=== PATIENT | female | born 1965 | race Hispanic/Latino ===

== ENCOUNTER 2018-10-10 20:05 | Emergency (ER) | payer SELFPAY ==
--- NOTE | 2018-10-10 20:58 | RAD ---
PORTABLE CHEST: 10/10/18 HISTORY: Cough. Evidence of focal infiltrate in the medial right lung base obscuring right heart border. Lungs other umana clear. Heart and mediastinum unremarkable. IMPRESSION: Evidence of infiltrate in the medial right lower lung and possibly right middle lobe. POS: [facility]
[2018-10-10] MEDS ORDERED: Lidocaine 1% (PF) 30 ML VIAL ONE (21:24)
[2018-10-10] MEDS ORDERED: cefTRIAXone\\ROCEPHIN 1 GM VIAL ONE (21:24)
== END 2018-10-10 22:04 | disposition home or self-care (01) ==
LOC: ERS 20:05
DX: J18.1 Lobar pneumonia, unspecified organism (principal); E11.9 Type 2 diabetes mellitus without complications; Z79.84 Long term (current) use of oral hypoglycemic drugs
CPT/HCPCS: 71045; 87804; 96372; J0696; J2001

== ENCOUNTER 2020-05-20 12:53 | Emergency (ER) | payer SELFPAY ==
--- NOTE | 2020-05-20 13:30 | ULT ---
EXAM: Left lower extremity venous Doppler US HISTORY: left lower extremity edema and pain. Elevated d-dimer FINDINGS: Grayscale, color-flow, Doppler evaluation, spectral analysis of the left lower extremity venous struc tures is performed with 2-D imaging. The left common femoral, superficial femoral, popliteal, posterior tibial, proximal greater saphenous and profunda femoral veins are imaged. There is normal luminal compressibility, flow, and augmentation the visualized deep venous structures of the left lower extremity. IMPRESSION: No evidence of a deep vein thrombosis in the left lower extremity.
== END 2020-05-20 14:01 | disposition home or self-care (01) ==
LOC: ERS 12:53
DX: M54.42 Lumbago with sciatica, left side (principal); M79.605 Pain in left leg; E11.9 Type 2 diabetes mellitus without complications; Z79.82 Long term (current) use of aspirin; Z79.899 Other long term (current) drug therapy; Z79.84 Long term (current) use of oral hypoglycemic drugs

== ENCOUNTER 2020-12-23 17:40 | Inpatient (IN) | payer BC, SELFPAY ==
[~2020-12-23 17:40] MED LIST: Heparin 1,000 UNITS/ML VIAL ONE; Iopamidol-370 76% 500 ML 1 ML ONE
[2020-12-23 18:18] LABS: #Basophils 0.1 thou/uL (0.0-0.2); #Eosinphils 0.4 thou/uL (0.0-0.7); #Lymphocytes 1.3 thou/uL (1.20-3.40); #Monocytes 0.4 thou/uL (0.11-0.59); #Neutrophils 5.5 thou/uL (1.40-6.50); %Eosinophils 4.6 % (0.0-10.0); %Lymphocytes 17.3 % (21.0-51.0); %Monocytes 5.2 % (0.0-10.0); Hemoglobin 10.3 g/dL (12.0-16.0); Mean Corpuscular HGB CONC 32.4 g/dL (32.0-36.0); Mean Corpuscular Hemoglobin 28.7 pg (27.0-31.0); Mean Corpuscular Volume 88.6 fL (78.0-98.0); Mean Platelet Volume 7.7 fL (7.4-10.4); Platelet Count 261 thou/uL (130-400); RBC Distribution Width 12.7 % (11.5-14.5); Red Blood Cell (RBC) Count 3.59 mill/uL (4.20-5.40); White Blood Cell (WBC) Count 7.7 thou/uL (4.8-10.8)
[2020-12-23 18:40] LABS: ALT (SGPT) 130 U/L (8-55); AST (SGOT) 76 U/L (5-34); Albumin 3.1 g/dL (3.5-5.0); Alkaline Phosphatase 166 U/L (40-110); Anion Gap 13 mmol/L (10-20); BUN (Urea Nitrogen) 28 mg/dL (9.8-20.1); Bilirubin, Total 0.2 mg/dL (0.2-1.2); Calc. Creatinine Clearance 0 mL/min (70-130); Calcium 8.2 mg/dL (7.8-10.44); Carbon Dioxide 19 mmol/L (22-29); Chloride 113 mmol/L (98-107); Globulin 3.4 g/dL (2.4-3.5); Glucose 173 mg/dL (70-105); Potassium 3.7 mmol/L (3.5-5.1); Protein, Total 6.5 g/dL (6.0-8.3); Sodium 141 mmol/L (136-145)
[2020-12-23 19:02] LABS: CKMB 3.4 ng/mL (0-6.6)
[2020-12-23] MEDS ORDERED: Aspirin Chewable 81 MG TAB ONE (19:12)
[2020-12-23] MEDS ORDERED: Furosemide 40 MG/4 ML VIAL ONE (19:12)
[2020-12-23 21:41] LABS: SARS-CoV-2 NAA Rapid Test Not Detected (NotDetected)
[2020-12-23 22:22] LABS: Troponin I 0.052 ng/mL (< 0.028)
[2020-12-24] MEDS ORDERED: Ondansetron ODT 4 MG TAB SL PRN (00:45)
[2020-12-24] MEDS ORDERED: Acetaminophen 325 MG TAB PO PRN (00:45)
[2020-12-24] MEDS ORDERED: Ondansetron PF 4 MG/2 ML Vial IVP PRN (00:45)
[2020-12-24 01:15] LABS: Troponin I 0.063 ng/mL (< 0.028)
[2020-12-24 04:50] LABS: #Eosinphils 0.3 thou/uL (0.0-0.7); #Lymphocytes 1.6 thou/uL (1.20-3.40); #Monocytes 0.4 thou/uL (0.11-0.59); #Neutrophils 3.9 thou/uL (1.40-6.50); %Basophils 0.6 % (0.0-1.0); %Eosinophils 4.5 % (0.0-10.0); %Lymphocytes 25.1 % (21.0-51.0); %Monocytes 6.9 % (0.0-10.0); %Neutrophils 62.9 % (42.0-75.0); Hemoglobin 8.8 g/dL (12.0-16.0); Mean Corpuscular HGB CONC 32.5 g/dL (32.0-36.0); Mean Corpuscular Hemoglobin 28.7 pg (27.0-31.0); Mean Corpuscular Volume 88.1 fL (78.0-98.0); Mean Platelet Volume 7.7 fL (7.4-10.4); Platelet Count 211 thou/uL (130-400); RBC Distribution Width 12.5 % (11.5-14.5); Red Blood Cell (RBC) Count 3.07 mill/uL (4.20-5.40); White Blood Cell (WBC) Count 6.2 thou/uL (4.8-10.8)
[2020-12-24 05:25] LABS: Anion Gap 13 mmol/L (10-20); BUN (Urea Nitrogen) 28 mg/dL (9.8-20.1); Calc. Creatinine Clearance 42 mL/min (70-130); Calcium 7.9 mg/dL (7.8-10.44); Carbon Dioxide 21 mmol/L (22-29); Chloride 111 mmol/L (98-107); Glucose 128 mg/dL (70-105); Potassium 3.8 mmol/L (3.5-5.1); Sodium 141 mmol/L (136-145)
[2020-12-24 06:29] LABS: Bilirubin Negative (Negative); Blood, Urine 1+ (Negative); Clarity Clear (Clear); Glucose, Urine (Dipstick) Normal (Negative); Ketone, Urine Negative (Negative); Leukocyte Negative Leu/uL (Negative); Nitrite Negative (Negative); Protein, Urine (Dipstick) 300 mg/dL (Neg-Trace); Specific Gravity, Urine 1.019 (1.002-1.036); Urobilinogen Normal mg/dL (Less than 2); pH, Urine 5.5 (5.0-9.0)
[2020-12-24] MEDS ORDERED: Furosemide 40 MG/4 ML VIAL SLOW IVP SCH ×2 (09:00→18:00)
[2020-12-24] MEDS ORDERED: Enoxaparin Sodium 40 MG/0.4 ML SYRINGE SC SCH (09:00)
[2020-12-24] MEDS ORDERED: Insulin Regular 300 UNITS/3 ML VIAL SC PRN (16:04)
[2020-12-24] MEDS ORDERED: Dextrose 50% Abboject 50 ML SYRINGE SLOW IVP PRN (16:04)
[2020-12-24] MEDS ORDERED: Dextrose 5% in Water 1,000 ML IV PRN (16:04)
[2020-12-24 17:34] LABS: Glucose 170 mg/dL (70-105)
[2020-12-24] MEDS: Carvedilol 3.125 MG TAB PO SCH (18:01)
[2020-12-24] MEDS: Enoxaparin Sodium 80 MG/0.8 ML SYRINGE SC SCH (20:12)
[2020-12-24 21:35] LABS: Glucose 168 mg/dL (70-105)
[2020-12-25 04:33] LABS: #Basophils 0.1 thou/uL (0.0-0.2); #Eosinphils 0.4 thou/uL (0.0-0.7); #Lymphocytes 1.7 thou/uL (1.20-3.40); #Monocytes 0.4 thou/uL (0.11-0.59); #Neutrophils 3.6 thou/uL (1.40-6.50); %Eosinophils 7.1 % (0.0-10.0); %Lymphocytes 27.6 % (21.0-51.0); %Monocytes 7.1 % (0.0-10.0); %Neutrophils 57.2 % (42.0-75.0); Hemoglobin 9.5 g/dL (12.0-16.0); Mean Corpuscular Hemoglobin 28.4 pg (27.0-31.0); Mean Corpuscular Volume 88.9 fL (78.0-98.0); Mean Platelet Volume 7.9 fL (7.4-10.4); Platelet Count 215 thou/uL (130-400); RBC Distribution Width 12.8 % (11.5-14.5); Red Blood Cell (RBC) Count 3.34 mill/uL (4.20-5.40); White Blood Cell (WBC) Count 6.2 thou/uL (4.8-10.8)
[2020-12-25 04:40] LABS: Hemoglobin A1c 6.6 % (4.0-6.0)
[2020-12-25 05:01] LABS: ALT (SGPT) 76 U/L (8-55); AST (SGOT) 32 U/L (5-34); Albumin 2.8 g/dL (3.5-5.0); Alkaline Phosphatase 124 U/L (40-110); Anion Gap 12 mmol/L (10-20); BUN (Urea Nitrogen) 29 mg/dL (9.8-20.1); Bilirubin, Total 0.2 mg/dL (0.2-1.2); Calc. Creatinine Clearance 33 mL/min (70-130); Calcium 8.1 mg/dL (7.8-10.44); Carbon Dioxide 25 mmol/L (22-29); Cardiac Risk 6.6 (Less than 4.5); Chloride 108 mmol/L (98-107); Cholesterol 205 mg/dl (< 200 Desired); Globulin 3.1 g/dL (2.4-3.5); Glucose 149 mg/dL (70-105); HDL Cholesterol 31 mg/dL (>60 Neg Risk); LDL Cholesterol, Calculated 141 mg/dL; Magnesium 1.8 mg/dL (1.6-2.6); Protein, Total 5.9 g/dL (6.0-8.3); Sodium 141 mmol/L (136-145); Triglycerides 164 mg/dL (Less than 150)
[2020-12-25 05:16] LABS: HBCM Index 0.06 S/CO (0-0.79); HBSAg Index 0.16 S/CO (0-0.99); Hep A IgM AB Non-Reactive (NonReactive); Hep A IgM S/CO 0.16 S/CO (0-0.79); Hep B Surf Ag Non-Reactive S/CO (NonReactive); Hep C IgG Ab Non-Reactive (NonReactive); Hep C Index 0.08 S/CO (0-0.79); Hepatitis B Core IgM Abs Non-Reactive (NonReactive); Thyroid Stimulating Hormone 3.1832 uIU/mL (0.35-4.94)
[2020-12-25] MEDS: Aspirin 81 mg Enteric Coated Tablet PO SCH (08:20)
[2020-12-25] MEDS: Enoxaparin Sodium 80 MG/0.8 ML SYRINGE SC SCH (08:20)
[2020-12-25] MEDS: Carvedilol 3.125 MG TAB PO SCH (08:20)
[2020-12-25] MEDS ORDERED: Furosemide 20 MG TAB PO SCH (17:00)
[2020-12-25 17:17] LABS: Glucose 181 mg/dL (70-105)
[2020-12-25] MEDS: Carvedilol 6.25 MG TAB PO SCH (18:14)
[2020-12-25 21:28] LABS: Glucose 188 mg/dL (70-105)
[2020-12-25] MEDS: Atorvastatin Calcium 40 MG TAB PO SCH ×2 (21:45→22:31)
[2020-12-25] MEDS: Rosuvastatin 20 MG TAB PO SCH (21:45)
[2020-12-25] MEDS: Enoxaparin Sodium 40 MG/0.4 ML SYRINGE SC SCH (21:45)
[2020-12-26 04:38] LABS: #Eosinphils 0.5 thou/uL (0.0-0.7); #Lymphocytes 1.4 thou/uL (1.20-3.40); #Monocytes 0.4 thou/uL (0.11-0.59); %Basophils 0.9 % (0.0-1.0); %Eosinophils 8.9 % (0.0-10.0); %Lymphocytes 26.3 % (21.0-51.0); %Monocytes 7.4 % (0.0-10.0); %Neutrophils 56.5 % (42.0-75.0); Hemoglobin 9.4 g/dL (12.0-16.0); Mean Corpuscular HGB CONC 32.4 g/dL (32.0-36.0); Mean Corpuscular Hemoglobin 28.8 pg (27.0-31.0); Mean Corpuscular Volume 89.1 fL (78.0-98.0); Mean Platelet Volume 8.1 fL (7.4-10.4); Platelet Count 196 thou/uL (130-400); RBC Distribution Width 12.6 % (11.5-14.5); Red Blood Cell (RBC) Count 3.25 mill/uL (4.20-5.40); White Blood Cell (WBC) Count 5.4 thou/uL (4.8-10.8)
[2020-12-26 04:39] LABS: Reticulocyte Count 1.4 % (0.5-1.5)
[2020-12-26 04:57] LABS: ALT (SGPT) 75 U/L (8-55); AST (SGOT) 40 U/L (5-34); Albumin 2.9 g/dL (3.5-5.0); Alkaline Phosphatase 122 U/L (40-110); Anion Gap 10 mmol/L (10-20); BUN (Urea Nitrogen) 34 mg/dL (9.8-20.1); Bilirubin, Total 0.2 mg/dL (0.2-1.2); Calc. Creatinine Clearance 35 mL/min (70-130); Calcium 7.8 mg/dL (7.8-10.44); Carbon Dioxide 28 mmol/L (22-29); Chloride 107 mmol/L (98-107); Globulin 2.9 g/dL (2.4-3.5); Glucose 164 mg/dL (70-105); Iron Binding Capacity, Total 204 mcg/dL (265-497); Potassium 4.2 mmol/L (3.5-5.1); Protein, Total 5.8 g/dL (6.0-8.3); Sodium 141 mmol/L (136-145)
[2020-12-26 08:05] LABS: Glucose 153 mg/dL (70-105)
[2020-12-26] MEDS: Enoxaparin Sodium 40 MG/0.4 ML SYRINGE SC SCH ×2 (08:47→21:42)
[2020-12-26] MEDS: Aspirin 81 mg Enteric Coated Tablet PO SCH (08:48)
[2020-12-26] MEDS: Carvedilol 6.25 MG TAB PO SCH ×2 (08:48→17:38)
[2020-12-26] MEDS ORDERED: Furosemide 20 MG TAB PO SCH (09:00)
[2020-12-26 12:09] LABS: Glucose 192 mg/dL (70-105)
[2020-12-26 18:04] LABS: Glucose 137 mg/dL (70-105)
[2020-12-26 21:30] LABS: Glucose 158 mg/dL (70-105)
[2020-12-26] MEDS: Rosuvastatin 20 MG TAB PO SCH (21:42)
[2020-12-27 05:46] LABS: Anion Gap 9 mmol/L (10-20); BUN (Urea Nitrogen) 45 mg/dL (9.8-20.1); Calc. Creatinine Clearance 35 mL/min (70-130); Calcium 8.1 mg/dL (7.8-10.44); Carbon Dioxide 29 mmol/L (22-29); Chloride 106 mmol/L (98-107); Glucose 142 mg/dL (70-105); Potassium 4.3 mmol/L (3.5-5.1); Sodium 140 mmol/L (136-145)
[2020-12-27] MEDS: Carvedilol 6.25 MG TAB PO SCH ×2 (08:24→16:35)
[2020-12-27] MEDS: Aspirin 81 mg Enteric Coated Tablet PO SCH (08:24)
[2020-12-27] MEDS: Furosemide 20 MG TAB PO SCH (08:24)
[2020-12-27] MEDS: Enoxaparin Sodium 40 MG/0.4 ML SYRINGE SC SCH ×2 (08:24→20:49)
[2020-12-27] MEDS: HumaLOG 300 UNITS/3 ML VIAL SC PRN (18:43)
[2020-12-27] MEDS: Rosuvastatin 20 MG TAB PO SCH (20:49)
[2020-12-28 01:05] LABS: ALT (SGPT) 96 U/L (8-55); AST (SGOT) 86 U/L (5-34); Albumin 2.9 g/dL (3.5-5.0); Alkaline Phosphatase 132 U/L (40-110); Anion Gap 13 mmol/L (10-20); BUN (Urea Nitrogen) 44 mg/dL (9.8-20.1); Bilirubin, Total Less than 0.2 mg/dL (0.2-1.2); Calc. Creatinine Clearance 32 mL/min (70-130); Calcium 7.7 mg/dL (7.8-10.44); Carbon Dioxide 23 mmol/L (22-29); Chloride 108 mmol/L (98-107); Glucose 189 mg/dL (70-105); Potassium 4.6 mmol/L (3.5-5.1); Protein, Total 5.9 g/dL (6.0-8.3); Sodium 139 mmol/L (136-145)
[2020-12-28] MEDS ORDERED: ALPRAZolam 0.25 MG TAB PO SCH (01:15)
[2020-12-28] MEDS ORDERED: PARoxetine 20 MG TAB PO SCH (01:15)
[2020-12-28 01:27] LABS: CKMB 2.2 ng/mL (0-6.6)
[2020-12-28 05:25] LABS: #Eosinphils 0.4 thou/uL (0.0-0.7); #Lymphocytes 1.3 thou/uL (1.20-3.40); #Monocytes 0.4 thou/uL (0.11-0.59); #Neutrophils 3.4 thou/uL (1.40-6.50); %Basophils 0.8 % (0.0-1.0); %Eosinophils 7.5 % (0.0-10.0); %Lymphocytes 22.6 % (21.0-51.0); %Monocytes 7.5 % (0.0-10.0); %Neutrophils 61.6 % (42.0-75.0); Hemoglobin 8.7 g/dL (12.0-16.0); Mean Corpuscular HGB CONC 32.2 g/dL (32.0-36.0); Mean Corpuscular Hemoglobin 28.5 pg (27.0-31.0); Mean Corpuscular Volume 88.5 fL (78.0-98.0); Mean Platelet Volume 8.4 fL (7.4-10.4); Platelet Count 184 thou/uL (130-400); RBC Distribution Width 12.6 % (11.5-14.5); Red Blood Cell (RBC) Count 3.04 mill/uL (4.20-5.40); White Blood Cell (WBC) Count 5.5 thou/uL (4.8-10.8)
[2020-12-28] MEDS: Furosemide 20 MG TAB PO SCH (08:42)
[2020-12-28] MEDS: Aspirin 81 mg Enteric Coated Tablet PO SCH (08:42)
[2020-12-28] MEDS: PARoxetine 20 MG TAB PO SCH (08:42)
[2020-12-28] MEDS: Carvedilol 6.25 MG TAB PO SCH ×2 (08:42→17:39)
[2020-12-28] MEDS: Enoxaparin Sodium 40 MG/0.4 ML SYRINGE SC SCH ×2 (08:42→20:33)
[2020-12-28 12:27] LABS: Glucose 146 mg/dL (70-105)
[2020-12-28 17:23] LABS: Glucose 161 mg/dL (70-105)
[2020-12-28] MEDS: ALPRAZolam 0.25 MG TAB PO PRN (20:34)
[2020-12-28] MEDS: Rosuvastatin 20 MG TAB PO SCH (20:34)
[2020-12-28] MEDS: Milrinone Lactate/D5W 20 MG in Premix Bag 1 BAG IV SCH (20:34)
[2020-12-29 05:09] LABS: #Eosinphils 0.4 thou/uL (0.0-0.7); #Lymphocytes 1.6 thou/uL (1.20-3.40); #Monocytes 0.5 thou/uL (0.11-0.59); #Neutrophils 3.2 thou/uL (1.40-6.50); %Basophils 0.8 % (0.0-1.0); %Eosinophils 7.4 % (0.0-10.0); %Lymphocytes 27.3 % (21.0-51.0); %Monocytes 9.2 % (0.0-10.0); %Neutrophils 55.3 % (42.0-75.0); Hemoglobin 8.7 g/dL (12.0-16.0); Mean Corpuscular HGB CONC 32.6 g/dL (32.0-36.0); Mean Corpuscular Hemoglobin 29.1 pg (27.0-31.0); Mean Corpuscular Volume 89.1 fL (78.0-98.0); Mean Platelet Volume 8.9 fL (7.4-10.4); Platelet Count 175 thou/uL (130-400); RBC Distribution Width 12.6 % (11.5-14.5); Red Blood Cell (RBC) Count 2.97 mill/uL (4.20-5.40); Reticulocyte Count 1.7 % (0.5-1.5); White Blood Cell (WBC) Count 5.8 thou/uL (4.8-10.8)
[2020-12-29 05:24] LABS: Anion Gap 11 mmol/L (10-20); BUN (Urea Nitrogen) 40 mg/dL (9.8-20.1); Calc. Creatinine Clearance 37 mL/min (70-130); Calcium 7.7 mg/dL (7.8-10.44); Carbon Dioxide 25 mmol/L (22-29); Chloride 107 mmol/L (98-107); Glucose 141 mg/dL (70-105); Iron 24 ug/dL (50-170); Iron Binding Capacity, Total 218 mcg/dL (265-497); Magnesium 2.3 mg/dL (1.6-2.6); Potassium 4.8 mmol/L (3.5-5.1); Sodium 138 mmol/L (136-145)
[2020-12-29] MEDS: Milrinone Lactate/D5W 20 MG in Premix Bag 1 BAG IV SCH ×2 (08:25→18:18)
[2020-12-29] MEDS: PARoxetine 20 MG TAB PO SCH (08:25)
[2020-12-29] MEDS: Carvedilol 6.25 MG TAB PO SCH ×2 (08:25→16:26)
[2020-12-29] MEDS: Enoxaparin Sodium 40 MG/0.4 ML SYRINGE SC SCH ×2 (08:25→21:24)
[2020-12-29] MEDS: Aspirin 81 mg Enteric Coated Tablet PO SCH (08:25)
[2020-12-29] MEDS ORDERED: Furosemide 100 MG/10 ML VIAL SLOW IVP SCH (08:30)
[2020-12-29] MEDS: Iron, Sodium Ferric Gluconate 250 MG in Sodium Chloride 0.9% 100 ML IVPB SCH ×2 (09:46→21:24)
[2020-12-29] MEDS ORDERED: Carvedilol 6.25 MG TAB PO SCH (17:00)
[2020-12-29] MEDS: Rosuvastatin 20 MG TAB PO SCH (21:24)
[2020-12-30] MEDS: HumaLOG 300 UNITS/3 ML VIAL SC PRN ×4 (06:11→20:47)
[2020-12-30] MEDS ORDERED: Furosemide 100 MG/10 ML VIAL SLOW IVP SCH (08:30)
[2020-12-30 08:35] LABS: ALT (SGPT) 66 U/L (8-55); AST (SGOT) 29 U/L (5-34); Albumin 2.9 g/dL (3.5-5.0); Alkaline Phosphatase 113 U/L (40-110); Anion Gap 11 mmol/L (10-20); BUN (Urea Nitrogen) 32 mg/dL (9.8-20.1); Bilirubin, Total 0.2 mg/dL (0.2-1.2); Calc. Creatinine Clearance 36 mL/min (70-130); Calcium 8.2 mg/dL (7.8-10.44); Carbon Dioxide 25 mmol/L (22-29); Chloride 109 mmol/L (98-107); Globulin 3.1 g/dL (2.4-3.5); Glucose 83 mg/dL (70-105); Magnesium 2.2 mg/dL (1.6-2.6); Potassium 4.5 mmol/L (3.5-5.1); Sodium 140 mmol/L (136-145)
[2020-12-30] MEDS: PARoxetine 20 MG TAB PO SCH (10:11)
[2020-12-30] MEDS: Aspirin 81 mg Enteric Coated Tablet PO SCH (10:11)
[2020-12-30] MEDS: Carvedilol 6.25 MG TAB PO SCH ×2 (10:11→18:06)
[2020-12-30] MEDS: Milrinone Lactate/D5W 20 MG in Premix Bag 1 BAG IV SCH ×2 (10:13→19:54)
[2020-12-30] MEDS: Enoxaparin Sodium 40 MG/0.4 ML SYRINGE SC SCH ×2 (10:22→20:46)
[2020-12-30] MEDS ORDERED: Albumin 25% 25 GM/100 ML BOT IVPB SCH (14:49)
[2020-12-30] MEDS: Furosemide 100 MG/10 ML VIAL SLOW IVP SCH (16:19)
[2020-12-30] MEDS: Rosuvastatin 20 MG TAB PO SCH (20:46)
[2020-12-31 04:38] LABS: #Eosinphils 0.4 thou/uL (0.0-0.7); #Lymphocytes 1.2 thou/uL (1.20-3.40); #Monocytes 0.6 thou/uL (0.11-0.59); #Neutrophils 3.3 thou/uL (1.40-6.50); %Basophils 0.7 % (0.0-1.0); %Eosinophils 7.8 % (0.0-10.0); %Lymphocytes 22.1 % (21.0-51.0); %Monocytes 10.5 % (0.0-10.0); %Neutrophils 58.9 % (42.0-75.0); Hemoglobin 8.5 g/dL (12.0-16.0); Mean Corpuscular HGB CONC 33.5 g/dL (32.0-36.0); Mean Corpuscular Hemoglobin 29.4 pg (27.0-31.0); Mean Corpuscular Volume 87.7 fL (78.0-98.0); Mean Platelet Volume 8.4 fL (7.4-10.4); Platelet Count 176 thou/uL (130-400); RBC Distribution Width 12.5 % (11.5-14.5); Red Blood Cell (RBC) Count 2.89 mill/uL (4.20-5.40); White Blood Cell (WBC) Count 5.6 thou/uL (4.8-10.8)
[2020-12-31 05:02] LABS: Anion Gap 13 mmol/L (10-20); BUN (Urea Nitrogen) 31 mg/dL (9.8-20.1); Calc. Creatinine Clearance 35 mL/min (70-130); Calcium 8.8 mg/dL (7.8-10.44); Carbon Dioxide 27 mmol/L (22-29); Chloride 104 mmol/L (98-107); Glucose 116 mg/dL (70-105); Magnesium 1.9 mg/dL (1.6-2.6); Potassium 4.3 mmol/L (3.5-5.1); Sodium 140 mmol/L (136-145)
[2020-12-31] MEDS: Milrinone Lactate/D5W 20 MG in Premix Bag 1 BAG IV SCH ×2 (07:12→20:21)
[2020-12-31] MEDS: Furosemide 100 MG/10 ML VIAL SLOW IVP SCH (08:28)
[2020-12-31] MEDS ORDERED: Enoxaparin Sodium 40 MG/0.4 ML SYRINGE SC SCH (09:00)
[2020-12-31] MEDS: Albumin 25% 25 GM/100 ML BOT IVPB SCH ×2 (10:00→20:23)
[2020-12-31] MEDS: PARoxetine 20 MG TAB PO SCH (10:01)
[2020-12-31] MEDS: Magnesium Oxide 400 MG TAB PO SCH ×2 (10:01→20:23)
[2020-12-31] MEDS: Carvedilol 6.25 MG TAB PO SCH ×2 (10:01→17:33)
[2020-12-31] MEDS: Enoxaparin Sodium 40 MG/0.4 ML SYRINGE SC SCH ×2 (10:03→20:23)
[2020-12-31] MEDS: Aspirin 81 mg Enteric Coated Tablet PO SCH (10:03)
[2020-12-31] MEDS ORDERED: Furosemide 100 MG/10 ML VIAL IVPB SCH (11:00)
[2020-12-31] MEDS: HumaLOG 300 UNITS/3 ML VIAL SC PRN ×2 (12:27→17:40)
[2020-12-31] MEDS: Rosuvastatin 20 MG TAB PO SCH (20:23)
[2020-12-31] MEDS: ALPRAZolam 0.25 MG TAB PO PRN (20:24)
[2021-01-01 04:33] LABS: #Eosinphils 0.6 thou/uL (0.0-0.7); #Lymphocytes 1.7 thou/uL (1.20-3.40); #Monocytes 0.6 thou/uL (0.11-0.59); #Neutrophils 3.1 thou/uL (1.40-6.50); %Basophils 0.6 % (0.0-1.0); %Eosinophils 9.5 % (0.0-10.0); %Lymphocytes 28.3 % (21.0-51.0); %Monocytes 9.6 % (0.0-10.0); Hemoglobin 8.1 g/dL (12.0-16.0); Mean Corpuscular HGB CONC 32.9 g/dL (32.0-36.0); Mean Corpuscular Hemoglobin 28.7 pg (27.0-31.0); Mean Corpuscular Volume 87.4 fL (78.0-98.0); Mean Platelet Volume 8.1 fL (7.4-10.4); Platelet Count 170 thou/uL (130-400); RBC Distribution Width 12.6 % (11.5-14.5); Red Blood Cell (RBC) Count 2.81 mill/uL (4.20-5.40)
[2021-01-01 04:56] LABS: Anion Gap 11 mmol/L (10-20); BUN (Urea Nitrogen) 31 mg/dL (9.8-20.1); Calc. Creatinine Clearance 31 mL/min (70-130); Calcium 8.7 mg/dL (7.8-10.44); Carbon Dioxide 30 mmol/L (22-29); Chloride 102 mmol/L (98-107); Glucose 228 mg/dL (70-105); Magnesium 1.9 mg/dL (1.6-2.6); Potassium 4.1 mmol/L (3.5-5.1); Sodium 139 mmol/L (136-145)
[2021-01-01] MEDS: HumaLOG 300 UNITS/3 ML VIAL SC PRN ×2 (05:37→17:24)
[2021-01-01] MEDS ORDERED: Potassium Chloride 20 MEQ TAB PO SCH (09:00)
[2021-01-01] MEDS ORDERED: Furosemide 100 MG/10 ML VIAL SLOW IVP SCH (09:30)
[2021-01-01] MEDS: Carvedilol 6.25 MG TAB PO SCH ×2 (09:55→16:27)
[2021-01-01] MEDS: Enoxaparin Sodium 40 MG/0.4 ML SYRINGE SC SCH ×2 (09:56→20:52)
[2021-01-01] MEDS: PARoxetine 20 MG TAB PO SCH (09:56)
[2021-01-01] MEDS: Magnesium Oxide 400 MG TAB PO SCH ×2 (09:56→20:53)
[2021-01-01] MEDS: Aspirin 81 mg Enteric Coated Tablet PO SCH (09:56)
[2021-01-01] MEDS: Milrinone Lactate/D5W 20 MG in Premix Bag 1 BAG IV SCH ×2 (09:59→19:38)
[2021-01-01] MEDS: Rosuvastatin 20 MG TAB PO SCH (20:52)
[2021-01-02 04:28] LABS: #Eosinphils 0.7 thou/uL (0.0-0.7); #Lymphocytes 1.8 thou/uL (1.20-3.40); #Monocytes 0.6 thou/uL (0.11-0.59); %Basophils 0.5 % (0.0-1.0); %Eosinophils 9.6 % (0.0-10.0); %Lymphocytes 25.3 % (21.0-51.0); %Monocytes 8.3 % (0.0-10.0); %Neutrophils 56.4 % (42.0-75.0); Hemoglobin 10.4 g/dL (12.0-16.0); Mean Corpuscular Hemoglobin 29.4 pg (27.0-31.0); Mean Corpuscular Volume 88.8 fL (78.0-98.0); Mean Platelet Volume 8.3 fL (7.4-10.4); Platelet Count 192 thou/uL (130-400); Red Blood Cell (RBC) Count 3.55 mill/uL (4.20-5.40)
[2021-01-02 04:38] LABS: Anion Gap 15 mmol/L (10-20); BUN (Urea Nitrogen) 30 mg/dL (9.8-20.1); Calc. Creatinine Clearance 29 mL/min (70-130); Calcium 9.1 mg/dL (7.8-10.44); Carbon Dioxide 25 mmol/L (22-29); Chloride 103 mmol/L (98-107); Glucose 206 mg/dL (70-105); Magnesium 1.9 mg/dL (1.6-2.6); Potassium 4.6 mmol/L (3.5-5.1); Sodium 138 mmol/L (136-145)
[2021-01-02] MEDS: HumaLOG 300 UNITS/3 ML VIAL SC PRN ×2 (07:23→16:41)
[2021-01-02] MEDS: Milrinone Lactate/D5W 20 MG in Premix Bag 1 BAG IV SCH ×2 (07:24→22:10)
[2021-01-02] MEDS: PARoxetine 20 MG TAB PO SCH (08:51)
[2021-01-02] MEDS: Aspirin 81 mg Enteric Coated Tablet PO SCH (08:51)
[2021-01-02] MEDS: Carvedilol 6.25 MG TAB PO SCH ×2 (08:51→16:33)
[2021-01-02] MEDS: Potassium Chloride 20 MEQ TAB PO SCH (08:51)
[2021-01-02] MEDS: Magnesium Oxide 400 MG TAB PO SCH ×2 (08:51→21:02)
[2021-01-02] MEDS: Enoxaparin Sodium 40 MG/0.4 ML SYRINGE SC SCH ×2 (08:51→21:01)
[2021-01-02] MEDS ORDERED: Isosorbide Dinitrate 5 MG TAB PO SCH (10:15)
[2021-01-02] MEDS ORDERED: hydrALAZINE 25 MG TAB PO SCH (10:30)
[2021-01-02] MEDS: hydrALAZINE 25 MG TAB PO SCH ×2 (13:42→21:02)
[2021-01-02 17:58] LABS: INR-International Normal Ratio 0.9; Prothrombin Time 12.8 sec (12.0-14.7)
[2021-01-02] MEDS ORDERED: Warfarin Sodium 5 MG TAB PO SCH (20:15)
[2021-01-02] MEDS: Isosorbide Dinitrate 5 MG TAB PO SCH (21:01)
[2021-01-02] MEDS: Rosuvastatin 20 MG TAB PO SCH (21:02)
[2021-01-02] MEDS ORDERED: HumaLOG 300 UNITS/3 ML VIAL SC PRN (22:10)
[2021-01-03 03:58] LABS: #Basophils 0.1 thou/uL (0.0-0.2); #Eosinphils 0.7 thou/uL (0.0-0.7); #Lymphocytes 1.8 thou/uL (1.20-3.40); #Monocytes 0.7 thou/uL (0.11-0.59); #Neutrophils 3.6 thou/uL (1.40-6.50); %Basophils 0.9 % (0.0-1.0); %Eosinophils 10.1 % (0.0-10.0); %Lymphocytes 25.8 % (21.0-51.0); %Monocytes 10.6 % (0.0-10.0); %Neutrophils 52.6 % (42.0-75.0); Hemoglobin 10.6 g/dL (12.0-16.0); Mean Corpuscular HGB CONC 33.4 g/dL (32.0-36.0); Mean Corpuscular Hemoglobin 30.2 pg (27.0-31.0); Mean Corpuscular Volume 90.5 fL (78.0-98.0); Mean Platelet Volume 8.1 fL (7.4-10.4); Platelet Count 186 thou/uL (130-400); RBC Distribution Width 13.3 % (11.5-14.5); Red Blood Cell (RBC) Count 3.51 mill/uL (4.20-5.40); White Blood Cell (WBC) Count 6.9 thou/uL (4.8-10.8)
[2021-01-03 04:03] LABS: INR-International Normal Ratio 0.9; Prothrombin Time 12.6 sec (12.0-14.7)
[2021-01-03 04:32] LABS: Anion Gap 13 mmol/L (10-20); BUN (Urea Nitrogen) 29 mg/dL (9.8-20.1); Calc. Creatinine Clearance 29 mL/min (70-130); Calcium 8.8 mg/dL (7.8-10.44); Carbon Dioxide 25 mmol/L (22-29); Chloride 104 mmol/L (98-107); Glucose 164 mg/dL (70-105); Sodium 137 mmol/L (136-145)
[2021-01-03] MEDS: hydrALAZINE 25 MG TAB PO SCH ×3 (07:52→20:27)
[2021-01-03] MEDS: Carvedilol 6.25 MG TAB PO SCH ×2 (09:41→16:33)
[2021-01-03] MEDS: Isosorbide Dinitrate 5 MG TAB PO SCH ×2 (09:42→20:28)
[2021-01-03] MEDS: Enoxaparin Sodium 40 MG/0.4 ML SYRINGE SC SCH ×2 (09:42→20:28)
[2021-01-03] MEDS: Magnesium Oxide 400 MG TAB PO SCH ×2 (09:42→20:28)
[2021-01-03] MEDS: Potassium Chloride 20 MEQ TAB PO SCH (09:42)
[2021-01-03] MEDS: PARoxetine 20 MG TAB PO SCH (09:42)
[2021-01-03] MEDS: Aspirin 81 mg Enteric Coated Tablet PO SCH (09:42)
[2021-01-03] MEDS: Milrinone Lactate/D5W 20 MG in Premix Bag 1 BAG IV SCH ×2 (09:46→18:09)
[2021-01-03] MEDS: HumaLOG 300 UNITS/3 ML VIAL SC PRN ×2 (11:54→18:09)
[2021-01-03] MEDS: Albumin 25% 25 GM/100 ML BOT IVPB SCH ×2 (11:54→20:27)
[2021-01-03] MEDS: Warfarin Sodium 5 MG TAB PO SCH (16:34)
[2021-01-03] MEDS: Rosuvastatin 20 MG TAB PO SCH (20:28)
[2021-01-04] MEDS ORDERED: hydrALAZINE 25 MG TAB ONE ×3 (05:51→14:24)
[2021-01-04] MEDS ORDERED: Aspirin 81 mg Enteric Coated Tablet ONE (09:11)
[2021-01-04] MEDS ORDERED: Enoxaparin Sodium 40 MG/0.4 ML SYRINGE ONE (09:11)
[2021-01-04] MEDS ORDERED: Magnesium Oxide 400 MG TAB PO ONE (09:11)
[2021-01-04] MEDS ORDERED: Carvedilol 6.25 MG TAB ONE (09:11)
[2021-01-04] MEDS ORDERED: PARoxetine 20 MG TAB ONE (09:11)
[2021-01-04] MEDS: Carvedilol 6.25 MG TAB PO SCH ×2 (09:51→16:44)
[2021-01-04] MEDS: PARoxetine 20 MG TAB PO SCH (09:51)
[2021-01-04] MEDS: Enoxaparin Sodium 40 MG/0.4 ML SYRINGE SC SCH ×2 (09:51→22:13)
[2021-01-04] MEDS: Magnesium Oxide 400 MG TAB PO SCH ×2 (09:51→22:09)
[2021-01-04] MEDS: Aspirin 81 mg Enteric Coated Tablet PO SCH (09:51)
[2021-01-04] MEDS: Isosorbide Dinitrate 5 MG TAB PO SCH ×2 (09:51→22:09)
[2021-01-04] MEDS: hydrALAZINE 25 MG TAB PO SCH ×3 (14:28→22:09)
[2021-01-04 14:42] LABS: #Eosinphils 0.6 thou/uL (0.0-0.7); #Lymphocytes 1.3 thou/uL (1.20-3.40); #Monocytes 0.5 thou/uL (0.11-0.59); %Basophils 0.5 % (0.0-1.0); %Eosinophils 11.8 % (0.0-10.0); %Lymphocytes 23.2 % (21.0-51.0); %Monocytes 8.9 % (0.0-10.0); %Neutrophils 55.5 % (42.0-75.0); Hemoglobin 10.1 g/dL (12.0-16.0); Mean Corpuscular HGB CONC 32.5 g/dL (32.0-36.0); Mean Corpuscular Hemoglobin 29.5 pg (27.0-31.0); Mean Corpuscular Volume 90.9 fL (78.0-98.0); Mean Platelet Volume 8.2 fL (7.4-10.4); Platelet Count 193 thou/uL (130-400); RBC Distribution Width 13.4 % (11.5-14.5); Red Blood Cell (RBC) Count 3.41 mill/uL (4.20-5.40); White Blood Cell (WBC) Count 5.4 thou/uL (4.8-10.8)
[2021-01-04 15:00] LABS: Anion Gap 13 mmol/L (10-20); BUN (Urea Nitrogen) 30 mg/dL (9.8-20.1); Calc. Creatinine Clearance 32 mL/min (70-130); Calcium 9.1 mg/dL (7.8-10.44); Carbon Dioxide 25 mmol/L (22-29); Chloride 105 mmol/L (98-107); Glucose 144 mg/dL (70-105); Magnesium 2.2 mg/dL (1.6-2.6); Potassium 5.1 mmol/L (3.5-5.1); Sodium 138 mmol/L (136-145)
[2021-01-04] MEDS: Warfarin Sodium 5 MG TAB PO SCH (16:45)
[2021-01-04] MEDS: HumaLOG 300 UNITS/3 ML VIAL SC PRN (17:34)
[2021-01-04] MEDS: Milrinone Lactate/D5W 20 MG in Premix Bag 1 BAG IV SCH (17:38)
[2021-01-04 20:54] LABS: INR-International Normal Ratio 1.1; Prothrombin Time 14.7 sec (12.0-14.7)
[2021-01-04] MEDS: Rosuvastatin 20 MG TAB PO SCH (22:09)
[2021-01-05 03:47] LABS: INR-International Normal Ratio 1.5; Prothrombin Time 18.2 sec (12.0-14.7)
[2021-01-05 04:04] LABS: Anion Gap 13 mmol/L (10-20); BUN (Urea Nitrogen) 35 mg/dL (9.8-20.1); Calc. Creatinine Clearance 32 mL/min (70-130); Calcium 8.7 mg/dL (7.8-10.44); Carbon Dioxide 22 mmol/L (22-29); Chloride 105 mmol/L (98-107); Glucose 148 mg/dL (70-105); Magnesium 2.2 mg/dL (1.6-2.6); Potassium 4.9 mmol/L (3.5-5.1); Sodium 135 mmol/L (136-145)
[2021-01-05 04:15] LABS: #Basophils 0.1 thou/uL (0.0-0.2); #Eosinphils 0.7 thou/uL (0.0-0.7); #Lymphocytes 1.8 thou/uL (1.20-3.40); #Monocytes 0.5 thou/uL (0.11-0.59); #Neutrophils 3.2 thou/uL (1.40-6.50); %Eosinophils 10.5 % (0.0-10.0); %Lymphocytes 28.6 % (21.0-51.0); %Monocytes 8.3 % (0.0-10.0); %Neutrophils 51.6 % (42.0-75.0); Mean Corpuscular HGB CONC 33.5 g/dL (32.0-36.0); Mean Corpuscular Hemoglobin 29.8 pg (27.0-31.0); Mean Corpuscular Volume 89.2 fL (78.0-98.0); Mean Platelet Volume 7.6 fL (7.4-10.4); Platelet Count 195 thou/uL (130-400); RBC Distribution Width 13.2 % (11.5-14.5); RBC Morphology Normal; Red Blood Cell (RBC) Count 3.34 mill/uL (4.20-5.40); White Blood Cell (WBC) Count 6.3 thou/uL (4.8-10.8)
[2021-01-05] MEDS: hydrALAZINE 25 MG TAB PO SCH ×3 (05:06→21:21)
[2021-01-05] MEDS: Milrinone Lactate/D5W 20 MG in Premix Bag 1 BAG IV SCH ×2 (05:07→17:19)
[2021-01-05] MEDS: Enoxaparin Sodium 40 MG/0.4 ML SYRINGE SC SCH ×2 (08:08→21:21)
[2021-01-05] MEDS: Aspirin 81 mg Enteric Coated Tablet PO SCH (08:09)
[2021-01-05] MEDS: Carvedilol 6.25 MG TAB PO SCH ×2 (08:09→17:18)
[2021-01-05] MEDS: Magnesium Oxide 400 MG TAB PO SCH ×2 (08:10→21:20)
[2021-01-05] MEDS: Isosorbide Dinitrate 5 MG TAB PO SCH ×2 (08:10→21:20)
[2021-01-05] MEDS: PARoxetine 20 MG TAB PO SCH (08:10)
[2021-01-05] MEDS ORDERED: Acetaminophen 325 MG TAB PO PRN (16:27)
[2021-01-05] MEDS: Warfarin Sodium 5 MG TAB PO SCH (17:19)
[2021-01-05] MEDS: HumaLOG 300 UNITS/3 ML VIAL SC PRN (17:35)
[2021-01-05] MEDS: Rosuvastatin 20 MG TAB PO SCH (21:20)
[2021-01-06] MEDS: Milrinone Lactate/D5W 20 MG in Premix Bag 1 BAG IV SCH ×2 (02:31→23:28)
[2021-01-06] MEDS: hydrALAZINE 25 MG TAB PO SCH ×3 (05:19→20:54)
[2021-01-06 05:25] LABS: #Basophils 0.1 thou/uL (0.0-0.2); #Eosinphils 0.8 thou/uL (0.0-0.7); #Lymphocytes 1.8 thou/uL (1.20-3.40); #Monocytes 0.5 thou/uL (0.11-0.59); #Neutrophils 3.7 thou/uL (1.40-6.50); %Basophils 1.2 % (0.0-1.0); %Eosinophils 11.9 % (0.0-10.0); %Lymphocytes 26.3 % (21.0-51.0); %Monocytes 7.5 % (0.0-10.0); %Neutrophils 53.1 % (42.0-75.0); Mean Corpuscular HGB CONC 33.5 g/dL (32.0-36.0); Mean Corpuscular Hemoglobin 30.1 pg (27.0-31.0); Platelet Count 205 thou/uL (130-400); RBC Distribution Width 13.2 % (11.5-14.5); Red Blood Cell (RBC) Count 3.33 mill/uL (4.20-5.40)
[2021-01-06 05:30] LABS: INR-International Normal Ratio 1.7; Prothrombin Time 20.8 sec (12.0-14.7)
[2021-01-06 05:39] LABS: Anion Gap 14 mmol/L (10-20); BUN (Urea Nitrogen) 41 mg/dL (9.8-20.1); Calc. Creatinine Clearance 29 mL/min (70-130); Calcium 8.8 mg/dL (7.8-10.44); Carbon Dioxide 23 mmol/L (22-29); Chloride 104 mmol/L (98-107); Glucose 126 mg/dL (70-105); Magnesium 2.4 mg/dL (1.6-2.6); Potassium 4.7 mmol/L (3.5-5.1); Sodium 136 mmol/L (136-145)
[2021-01-06] MEDS: Magnesium Oxide 400 MG TAB PO SCH ×2 (08:44→20:54)
[2021-01-06] MEDS: Aspirin 81 mg Enteric Coated Tablet PO SCH (08:44)
[2021-01-06] MEDS: Enoxaparin Sodium 40 MG/0.4 ML SYRINGE SC SCH ×2 (08:44→20:54)
[2021-01-06] MEDS: Carvedilol 6.25 MG TAB PO SCH ×2 (08:44→16:37)
[2021-01-06] MEDS: Isosorbide Dinitrate 5 MG TAB PO SCH ×2 (08:44→20:54)
[2021-01-06] MEDS: PARoxetine 20 MG TAB PO SCH (08:45)
[2021-01-06] MEDS ORDERED: Sodium Chloride 0.9% 500 ML IV SCH (09:00)
[2021-01-06] MEDS: Albumin 25% 25 GM/100 ML BOT IVPB SCH ×3 (09:41→16:40)
[2021-01-06 09:59] LABS: ALT (SGPT) 24 U/L (8-55); AST (SGOT) 25 U/L (5-34); Albumin 3.7 g/dL (3.5-5.0); Alkaline Phosphatase 76 U/L (40-110); Anion Gap 13 mmol/L (10-20); BUN (Urea Nitrogen) 39 mg/dL (9.8-20.1); Bilirubin, Total 0.3 mg/dL (0.2-1.2); Calc. Creatinine Clearance 28 mL/min (70-130); Calcium 8.9 mg/dL (7.8-10.44); Carbon Dioxide 22 mmol/L (22-29); Chloride 104 mmol/L (98-107); Globulin 3.2 g/dL (2.4-3.5); Glucose 218 mg/dL (70-105); Potassium 5.1 mmol/L (3.5-5.1); Protein, Total 6.9 g/dL (6.0-8.3); Sodium 134 mmol/L (136-145)
[2021-01-06] MEDS: HumaLOG 300 UNITS/3 ML VIAL SC PRN (10:54)
[2021-01-06] MEDS: Warfarin Sodium 5 MG TAB PO SCH (16:38)
[2021-01-06] MEDS: Ferrous Sulfate 325 MG TAB PO SCH (16:38)
[2021-01-06] MEDS: Rosuvastatin 20 MG TAB PO SCH (20:54)
[2021-01-07 04:35] LABS: #Basophils 0.1 thou/uL (0.0-0.2); #Eosinphils 0.8 thou/uL (0.0-0.7); #Lymphocytes 1.6 thou/uL (1.20-3.40); #Monocytes 0.6 thou/uL (0.11-0.59); %Eosinophils 13.7 % (0.0-10.0); %Monocytes 9.7 % (0.0-10.0); %Neutrophils 48.7 % (42.0-75.0); Hemoglobin 9.3 g/dL (12.0-16.0); Mean Corpuscular HGB CONC 33.3 g/dL (32.0-36.0); Mean Corpuscular Hemoglobin 29.4 pg (27.0-31.0); Mean Corpuscular Volume 88.4 fL (78.0-98.0); Mean Platelet Volume 7.6 fL (7.4-10.4); Platelet Count 205 thou/uL (130-400); RBC Distribution Width 13.1 % (11.5-14.5); Red Blood Cell (RBC) Count 3.17 mill/uL (4.20-5.40); White Blood Cell (WBC) Count 6.1 thou/uL (4.8-10.8)
[2021-01-07 04:58] LABS: Anion Gap 11 mmol/L (10-20); BUN (Urea Nitrogen) 43 mg/dL (9.8-20.1); Calc. Creatinine Clearance 28 mL/min (70-130); Calcium 8.8 mg/dL (7.8-10.44); Carbon Dioxide 24 mmol/L (22-29); Chloride 106 mmol/L (98-107); Glucose 136 mg/dL (70-105); Magnesium 2.5 mg/dL (1.6-2.6); Potassium 4.8 mmol/L (3.5-5.1); Sodium 136 mmol/L (136-145)
[2021-01-07 05:01] LABS: INR-International Normal Ratio 2.3; Prothrombin Time 25.5 sec (12.0-14.7)
[2021-01-07] MEDS: hydrALAZINE 25 MG TAB PO SCH ×3 (05:55→21:56)
[2021-01-07] MEDS: Aspirin 81 mg Enteric Coated Tablet PO SCH (08:47)
[2021-01-07] MEDS: Carvedilol 6.25 MG TAB PO SCH ×2 (08:47→21:55)
[2021-01-07] MEDS: Cyanocobalamin (Vitamin B-12) 1,000 MCG TAB PO SCH (08:47)
[2021-01-07] MEDS: PARoxetine 20 MG TAB PO SCH (08:48)
[2021-01-07] MEDS: Ferrous Sulfate 325 MG TAB PO SCH (08:49)
[2021-01-07] MEDS: Isosorbide Dinitrate 5 MG TAB PO SCH ×2 (08:49→21:55)
[2021-01-07] MEDS: Magnesium Oxide 400 MG TAB PO SCH (08:49)
[2021-01-07] MEDS: Milrinone Lactate/D5W 20 MG in Premix Bag 1 BAG IV SCH ×3 (09:57→23:30)
[2021-01-07] MEDS: HumaLOG 300 UNITS/3 ML VIAL SC PRN ×2 (12:56→17:13)
[2021-01-07] MEDS: Warfarin Sodium 5 MG TAB PO SCH (17:12)
[2021-01-07] MEDS: Rosuvastatin 20 MG TAB PO SCH (21:55)
[2021-01-08 04:20] LABS: INR-International Normal Ratio 2.4; Prothrombin Time 26.6 sec (12.0-14.7)
[2021-01-08 04:37] LABS: Anion Gap 12 mmol/L (10-20); BUN (Urea Nitrogen) 51 mg/dL (9.8-20.1); Calc. Creatinine Clearance 24 mL/min (70-130); Calcium 8.7 mg/dL (7.8-10.44); Carbon Dioxide 21 mmol/L (22-29); Chloride 107 mmol/L (98-107); Glucose 122 mg/dL (70-105); Sodium 135 mmol/L (136-145)
[2021-01-08] MEDS ORDERED: DOBUTamine 500 mg/250 ml 500 MG in Premix Bag 1 BAG IVPB SCH (08:15)
[2021-01-08] MEDS: DOBUTamine 500 mg/250 ml 500 MG in Premix Bag 1 BAG IVPB SCH (08:52)
[2021-01-08] MEDS: Aspirin 81 mg Enteric Coated Tablet PO SCH (09:56)
[2021-01-08] MEDS: Cyanocobalamin (Vitamin B-12) 1,000 MCG TAB PO SCH (09:56)
[2021-01-08] MEDS: Isosorbide Dinitrate 5 MG TAB PO SCH ×2 (09:56→21:17)
[2021-01-08] MEDS: Carvedilol 6.25 MG TAB PO SCH ×3 (09:56→20:40)
[2021-01-08] MEDS: Ferrous Sulfate 325 MG TAB PO SCH (09:57)
[2021-01-08] MEDS: PARoxetine 20 MG TAB PO SCH (09:57)
[2021-01-08] MEDS: HumaLOG 300 UNITS/3 ML VIAL SC PRN ×2 (12:36→18:11)
[2021-01-08] MEDS: hydrALAZINE 25 MG TAB PO SCH ×4 (12:36→20:40)
[2021-01-08] MEDS: Milrinone Lactate/D5W 20 MG in Premix Bag 1 BAG IV SCH (12:38)
[2021-01-08] MEDS: Labetalol HCl 100 MG/20 ML VIAL SLOW IVP PRN ×2 (15:58→18:17)
[2021-01-08] MEDS: Rosuvastatin 20 MG TAB PO SCH (21:17)
[2021-01-09 05:03] LABS: INR-International Normal Ratio 2.4; Prothrombin Time 26.6 sec (12.0-14.7)
[2021-01-09 05:04] LABS: Anion Gap 13 mmol/L (10-20); BUN (Urea Nitrogen) 52 mg/dL (9.8-20.1); Calc. Creatinine Clearance 25 mL/min (70-130); Calcium 8.7 mg/dL (7.8-10.44); Carbon Dioxide 22 mmol/L (22-29); Chloride 108 mmol/L (98-107); Glucose 100 mg/dL (70-105); Potassium 4.6 mmol/L (3.5-5.1); Sodium 138 mmol/L (136-145)
[2021-01-09] MEDS: hydrALAZINE 25 MG TAB PO SCH ×3 (05:36→20:40)
[2021-01-09] MEDS: Milrinone Lactate/D5W 20 MG in Premix Bag 1 BAG IV SCH ×2 (05:57→23:30)
[2021-01-09] MEDS: Aspirin 81 mg Enteric Coated Tablet PO SCH (09:36)
[2021-01-09] MEDS: Ferrous Sulfate 325 MG TAB PO SCH (09:37)
[2021-01-09] MEDS: Carvedilol 6.25 MG TAB PO SCH ×2 (09:37→20:40)
[2021-01-09] MEDS: Cyanocobalamin (Vitamin B-12) 1,000 MCG TAB PO SCH (09:37)
[2021-01-09] MEDS: Isosorbide Dinitrate 20 MG TAB PO SCH ×2 (09:40→21:06)
[2021-01-09] MEDS: PARoxetine 20 MG TAB PO SCH (09:40)
[2021-01-09] MEDS: HumaLOG 300 UNITS/3 ML VIAL SC PRN (11:55)
[2021-01-09] MEDS: Warfarin Sodium 2 MG TAB PO SCH (16:39)
[2021-01-09] MEDS: Rosuvastatin 20 MG TAB PO SCH (21:05)
[2021-01-10] MEDS: hydrALAZINE 25 MG TAB PO SCH ×3 (05:09→21:07)
[2021-01-10 05:17] LABS: Anion Gap 14 mmol/L (10-20); BUN (Urea Nitrogen) 54 mg/dL (9.8-20.1); Calc. Creatinine Clearance 25 mL/min (70-130); Calcium 8.4 mg/dL (7.8-10.44); Carbon Dioxide 20 mmol/L (22-29); Chloride 108 mmol/L (98-107); Glucose 90 mg/dL (70-105); Potassium 4.5 mmol/L (3.5-5.1); Sodium 137 mmol/L (136-145)
[2021-01-10] MEDS: Cyanocobalamin (Vitamin B-12) 1,000 MCG TAB PO SCH (10:03)
[2021-01-10] MEDS: Ferrous Sulfate 325 MG TAB PO SCH (10:03)
[2021-01-10] MEDS: Aspirin 81 mg Enteric Coated Tablet PO SCH (10:03)
[2021-01-10] MEDS: Carvedilol 6.25 MG TAB PO SCH ×2 (10:03→21:06)
[2021-01-10] MEDS: Isosorbide Dinitrate 20 MG TAB PO SCH ×2 (10:04→21:06)
[2021-01-10] MEDS: PARoxetine 20 MG TAB PO SCH (10:04)
[2021-01-10] MEDS: HumaLOG 300 UNITS/3 ML VIAL SC PRN (13:04)
[2021-01-10] MEDS: Warfarin Sodium 2 MG TAB PO SCH (17:17)
[2021-01-10] MEDS: Rosuvastatin 20 MG TAB PO SCH (21:06)
[2021-01-11] MEDS: Milrinone Lactate/D5W 20 MG in Premix Bag 1 BAG IV SCH (02:21)
[2021-01-11 04:43] LABS: PTT 45.1 sec (22.9-36.1); Prothrombin Time 22.9 sec (12.0-14.7)
[2021-01-11 04:59] LABS: Anion Gap 12 mmol/L (10-20); BUN (Urea Nitrogen) 54 mg/dL (9.8-20.1); Calc. Creatinine Clearance 23 mL/min (70-130); Calcium 8.3 mg/dL (7.8-10.44); Carbon Dioxide 22 mmol/L (22-29); Chloride 109 mmol/L (98-107); Glucose 100 mg/dL (70-105); Potassium 4.6 mmol/L (3.5-5.1); Sodium 138 mmol/L (136-145)
[2021-01-11] MEDS: hydrALAZINE 25 MG TAB PO SCH ×3 (06:12→22:04)
[2021-01-11] MEDS: Aspirin 81 mg Enteric Coated Tablet PO SCH (09:41)
[2021-01-11] MEDS: Carvedilol 6.25 MG TAB PO SCH ×2 (09:41→20:43)
[2021-01-11] MEDS: Cyanocobalamin (Vitamin B-12) 1,000 MCG TAB PO SCH (09:42)
[2021-01-11] MEDS: Ferrous Sulfate 325 MG TAB PO SCH (09:42)
[2021-01-11] MEDS: PARoxetine 20 MG TAB PO SCH (09:43)
[2021-01-11] MEDS: Isosorbide Dinitrate 20 MG TAB PO SCH ×2 (09:43→20:43)
[2021-01-11] MEDS: HumaLOG 300 UNITS/3 ML VIAL SC PRN (14:40)
[2021-01-11] MEDS: Warfarin Sodium 2 MG TAB PO SCH (17:24)
[2021-01-11] MEDS: Rosuvastatin 20 MG TAB PO SCH (20:44)
[2021-01-11] MEDS: Labetalol HCl 100 MG/20 ML VIAL SLOW IVP PRN (20:44)
[2021-01-11 22:51] LABS: SARS-CoV-2 PCR by NAA Not Detected (NotDetected)
[2021-01-12] MEDS: Milrinone Lactate/D5W 20 MG in Premix Bag 1 BAG IV SCH (03:22)
[2021-01-12] MEDS: DOBUTamine 500 mg/250 ml 500 MG in Premix Bag 1 BAG IVPB SCH (03:22)
[2021-01-12 05:04] LABS: PTT 37.8 sec (22.9-36.1); Prothrombin Time 23.3 sec (12.0-14.7)
[2021-01-12 05:23] LABS: Anion Gap 13 mmol/L (10-20); BUN (Urea Nitrogen) 51 mg/dL (9.8-20.1); Calc. Creatinine Clearance 26 mL/min (70-130); Calcium 8.3 mg/dL (7.8-10.44); Carbon Dioxide 20 mmol/L (22-29); Chloride 108 mmol/L (98-107); Glucose 106 mg/dL (70-105); Potassium 4.3 mmol/L (3.5-5.1); Sodium 137 mmol/L (136-145)
[2021-01-12] MEDS: hydrALAZINE 25 MG TAB PO SCH ×3 (06:02→22:14)
[2021-01-12] MEDS: Cyanocobalamin (Vitamin B-12) 1,000 MCG TAB PO SCH (09:26)
[2021-01-12] MEDS: Carvedilol 6.25 MG TAB PO SCH ×2 (09:26→22:13)
[2021-01-12] MEDS: PARoxetine 20 MG TAB PO SCH (09:27)
[2021-01-12] MEDS: Ferrous Sulfate 325 MG TAB PO SCH (09:27)
[2021-01-12] MEDS: Aspirin 81 mg Enteric Coated Tablet PO SCH (09:27)
[2021-01-12] MEDS: HumaLOG 300 UNITS/3 ML VIAL SC PRN ×2 (12:34→16:56)
[2021-01-12] MEDS: Isosorbide Dinitrate 20 MG TAB PO SCH ×2 (13:07→22:14)
[2021-01-12] MEDS: Warfarin Sodium 2 MG TAB PO SCH (16:20)
[2021-01-12] MEDS: Rosuvastatin 20 MG TAB PO SCH (22:13)
[2021-01-13] MEDS: DOBUTamine 500 mg/250 ml 500 MG in Premix Bag 1 BAG IVPB SCH (04:29)
[2021-01-13 04:53] LABS: #Basophils 0.1 thou/uL (0.0-0.2); #Eosinphils 0.9 thou/uL (0.0-0.7); #Lymphocytes 1.5 thou/uL (1.20-3.40); #Monocytes 0.6 thou/uL (0.11-0.59); %Basophils 1.7 % (0.0-1.0); %Eosinophils 13.4 % (0.0-10.0); %Lymphocytes 20.9 % (21.0-51.0); %Monocytes 8.1 % (0.0-10.0); Hemoglobin 9.4 g/dL (12.0-16.0); Mean Corpuscular HGB CONC 33.8 g/dL (32.0-36.0); Mean Corpuscular Hemoglobin 29.9 pg (27.0-31.0); Mean Corpuscular Volume 88.4 fL (78.0-98.0); Mean Platelet Volume 7.4 fL (7.4-10.4); Platelet Count 252 thou/uL (130-400); RBC Distribution Width 13.1 % (11.5-14.5); Red Blood Cell (RBC) Count 3.16 mill/uL (4.20-5.40); White Blood Cell (WBC) Count 7.1 thou/uL (4.8-10.8)
[2021-01-13 05:12] LABS: Anion Gap 13 mmol/L (10-20); BUN (Urea Nitrogen) 48 mg/dL (9.8-20.1); Calc. Creatinine Clearance 27 mL/min (70-130); Calcium 8.3 mg/dL (7.8-10.44); Carbon Dioxide 20 mmol/L (22-29); Chloride 109 mmol/L (98-107); Glucose 89 mg/dL (70-105); Magnesium 2.5 mg/dL (1.6-2.6); Potassium 4.6 mmol/L (3.5-5.1); Sodium 137 mmol/L (136-145)
[2021-01-13] MEDS: hydrALAZINE 25 MG TAB PO SCH ×3 (06:13→20:16)
[2021-01-13] MEDS: Isosorbide Dinitrate 20 MG TAB PO SCH ×3 (06:13→20:16)
[2021-01-13] MEDS: Carvedilol 6.25 MG TAB PO SCH ×2 (08:38→20:15)
[2021-01-13] MEDS: Cyanocobalamin (Vitamin B-12) 1,000 MCG TAB PO SCH (08:39)
[2021-01-13] MEDS: PARoxetine 20 MG TAB PO SCH (08:39)
[2021-01-13] MEDS: Ferrous Sulfate 325 MG TAB PO SCH (08:39)
[2021-01-13] MEDS: Aspirin 81 mg Enteric Coated Tablet PO SCH (08:39)
[2021-01-13] MEDS ORDERED: hydrALAZINE 25 MG TAB PO SCH (09:00)
[2021-01-13] MEDS: Milrinone Lactate/D5W 20 MG in Premix Bag 1 BAG IV SCH (14:44)
[2021-01-13] MEDS: Rosuvastatin 20 MG TAB PO SCH (20:15)
[2021-01-13] MEDS ORDERED: Enoxaparin Sodium 40 MG/0.4 ML SYRINGE SC SCH ×2 (21:00)
[2021-01-13] MEDS ORDERED: Enoxaparin Sodium 30 MG/0.3 ML SYRINGE SC SCH (21:00)
[2021-01-14 04:44] LABS: INR-International Normal Ratio 1.8; PTT 43.7 sec (22.9-36.1); Prothrombin Time 21.2 sec (12.0-14.7)
[2021-01-14 05:00] LABS: Anion Gap 12 mmol/L (10-20); BUN (Urea Nitrogen) 48 mg/dL (9.8-20.1); Calc. Creatinine Clearance 26 mL/min (70-130); Calcium 8.2 mg/dL (7.8-10.44); Carbon Dioxide 21 mmol/L (22-29); Chloride 108 mmol/L (98-107); Glucose 105 mg/dL (70-105); Magnesium 2.6 mg/dL (1.6-2.6); Potassium 4.5 mmol/L (3.5-5.1); Sodium 136 mmol/L (136-145)
[2021-01-14] MEDS: DOBUTamine 500 mg/250 ml 500 MG in Premix Bag 1 BAG IVPB SCH (05:02)
[2021-01-14] MEDS: hydrALAZINE 25 MG TAB PO SCH ×3 (05:03→21:32)
[2021-01-14] MEDS: Isosorbide Dinitrate 20 MG TAB PO SCH ×3 (05:03→21:32)
[2021-01-14] MEDS: Carvedilol 6.25 MG TAB PO SCH ×2 (10:10→21:31)
[2021-01-14] MEDS: Aspirin 81 mg Enteric Coated Tablet PO SCH (10:10)
[2021-01-14] MEDS: Cyanocobalamin (Vitamin B-12) 1,000 MCG TAB PO SCH (10:10)
[2021-01-14] MEDS: Enoxaparin Sodium 40 MG/0.4 ML SYRINGE SC SCH ×2 (10:10→21:31)
[2021-01-14] MEDS: PARoxetine 20 MG TAB PO SCH (10:11)
[2021-01-14] MEDS: Ferrous Sulfate 325 MG TAB PO SCH (10:11)
[2021-01-14] MEDS: Rosuvastatin 20 MG TAB PO SCH (21:32)
[2021-01-15] MEDS: Milrinone Lactate/D5W 20 MG in Premix Bag 1 BAG IV SCH (02:47)
[2021-01-15] MEDS: Isosorbide Dinitrate 20 MG TAB PO SCH ×3 (05:16→21:25)
[2021-01-15] MEDS: hydrALAZINE 25 MG TAB PO SCH ×3 (05:17→21:24)
[2021-01-15 05:42] LABS: Anion Gap 11 mmol/L (10-20); BUN (Urea Nitrogen) 46 mg/dL (9.8-20.1); Calc. Creatinine Clearance 26 mL/min (70-130); Calcium 8.3 mg/dL (7.8-10.44); Carbon Dioxide 22 mmol/L (22-29); Chloride 109 mmol/L (98-107); Glucose 84 mg/dL (70-105); Magnesium 2.5 mg/dL (1.6-2.6); Potassium 4.8 mmol/L (3.5-5.1); Sodium 137 mmol/L (136-145)
[2021-01-15] MEDS: Aspirin 81 mg Enteric Coated Tablet PO SCH (09:06)
[2021-01-15] MEDS: Carvedilol 6.25 MG TAB PO SCH ×2 (09:06→21:24)
[2021-01-15] MEDS: Cyanocobalamin (Vitamin B-12) 1,000 MCG TAB PO SCH (09:07)
[2021-01-15] MEDS: Enoxaparin Sodium 40 MG/0.4 ML SYRINGE SC SCH ×2 (09:07→21:26)
[2021-01-15] MEDS: PARoxetine 20 MG TAB PO SCH (09:07)
[2021-01-15] MEDS: Ferrous Sulfate 325 MG TAB PO SCH (09:07)
[2021-01-15] MEDS: DOBUTamine 500 mg/250 ml 500 MG in Premix Bag 1 BAG IVPB SCH (09:14)
[2021-01-15] MEDS: Amiodarone 200 MG TAB PO SCH (21:25)
[2021-01-15] MEDS: Rosuvastatin 20 MG TAB PO SCH (21:26)
[2021-01-16] MEDS: Milrinone Lactate/D5W 20 MG in Premix Bag 1 BAG IV SCH ×2 (00:11→20:03)
[2021-01-16 04:59] LABS: INR-International Normal Ratio 1.1; PTT 40.5 sec (22.9-36.1); Prothrombin Time 14.9 sec (12.0-14.7)
[2021-01-16 05:09] LABS: Anion Gap 12 mmol/L (10-20); BUN (Urea Nitrogen) 43 mg/dL (9.8-20.1); Calc. Creatinine Clearance 26 mL/min (70-130); Calcium 8.3 mg/dL (7.8-10.44); Carbon Dioxide 20 mmol/L (22-29); Chloride 109 mmol/L (98-107); Glucose 87 mg/dL (70-105); Magnesium 2.4 mg/dL (1.6-2.6); Potassium 4.7 mmol/L (3.5-5.1); Sodium 136 mmol/L (136-145)
[2021-01-16] MEDS: hydrALAZINE 25 MG TAB PO SCH ×3 (05:13→20:54)
[2021-01-16] MEDS: Isosorbide Dinitrate 20 MG TAB PO SCH ×3 (05:15→20:54)
[2021-01-16] MEDS: Carvedilol 6.25 MG TAB PO SCH ×2 (09:45→20:53)
[2021-01-16] MEDS: Amiodarone 200 MG TAB PO SCH ×2 (09:45→20:53)
[2021-01-16] MEDS: Cyanocobalamin (Vitamin B-12) 1,000 MCG TAB PO SCH (09:45)
[2021-01-16] MEDS: Enoxaparin Sodium 40 MG/0.4 ML SYRINGE SC SCH ×2 (09:45→20:53)
[2021-01-16] MEDS: Ferrous Sulfate 325 MG TAB PO SCH (09:45)
[2021-01-16] MEDS: Aspirin 81 mg Enteric Coated Tablet PO SCH (09:45)
[2021-01-16] MEDS: PARoxetine 20 MG TAB PO SCH (09:45)
[2021-01-16] MEDS: DOBUTamine 500 mg/250 ml 500 MG in Premix Bag 1 BAG IVPB SCH (11:58)
[2021-01-16] MEDS: Rosuvastatin 20 MG TAB PO SCH (20:52)
[2021-01-17 04:49] LABS: #Basophils 0.1 thou/uL (0.0-0.2); #Eosinphils 0.9 thou/uL (0.0-0.7); #Lymphocytes 1.3 thou/uL (1.20-3.40); #Monocytes 0.5 thou/uL (0.11-0.59); #Neutrophils 3.3 thou/uL (1.40-6.50); %Basophils 1.1 % (0.0-1.0); %Eosinophils 14.4 % (0.0-10.0); %Lymphocytes 21.4 % (21.0-51.0); %Monocytes 7.9 % (0.0-10.0); %Neutrophils 55.1 % (42.0-75.0); Hemoglobin 9.2 g/dL (12.0-16.0); Mean Corpuscular HGB CONC 33.4 g/dL (32.0-36.0); Mean Corpuscular Hemoglobin 30.1 pg (27.0-31.0); Mean Corpuscular Volume 90.1 fL (78.0-98.0); Mean Platelet Volume 7.6 fL (7.4-10.4); Platelet Count 203 thou/uL (130-400); RBC Distribution Width 13.3 % (11.5-14.5); Red Blood Cell (RBC) Count 3.06 mill/uL (4.20-5.40); White Blood Cell (WBC) Count 5.9 thou/uL (4.8-10.8)
[2021-01-17 05:09] LABS: Anion Gap 15 mmol/L (10-20); BUN (Urea Nitrogen) 42 mg/dL (9.8-20.1); Calc. Creatinine Clearance 27 mL/min (70-130); Calcium 8.3 mg/dL (7.8-10.44); Carbon Dioxide 19 mmol/L (22-29); Chloride 107 mmol/L (98-107); Glucose 101 mg/dL (70-105); Magnesium 2.6 mg/dL (1.6-2.6); Potassium 5.2 mmol/L (3.5-5.1); Sodium 136 mmol/L (136-145)
[2021-01-17] MEDS: hydrALAZINE 25 MG TAB PO SCH ×3 (05:33→21:37)
[2021-01-17] MEDS: Isosorbide Dinitrate 20 MG TAB PO SCH ×3 (05:33→21:37)
[2021-01-17] MEDS: Amiodarone 200 MG TAB PO SCH ×3 (09:14→21:38)
[2021-01-17] MEDS: Aspirin 81 mg Enteric Coated Tablet PO SCH (09:14)
[2021-01-17] MEDS: Ferrous Sulfate 325 MG TAB PO SCH (09:15)
[2021-01-17] MEDS: PARoxetine 20 MG TAB PO SCH (09:15)
[2021-01-17] MEDS: Enoxaparin Sodium 40 MG/0.4 ML SYRINGE SC SCH ×2 (09:15→21:37)
[2021-01-17] MEDS: Carvedilol 6.25 MG TAB PO SCH ×2 (09:15→21:37)
[2021-01-17] MEDS: Cyanocobalamin (Vitamin B-12) 1,000 MCG TAB PO SCH (09:27)
[2021-01-17 11:59] LABS: ALT (SGPT) 10 U/L (8-55); AST (SGOT) 14 U/L (5-34); Albumin 3.4 g/dL (3.5-5.0); Alkaline Phosphatase 60 U/L (40-110); Anion Gap 12 mmol/L (10-20); BUN (Urea Nitrogen) 40 mg/dL (9.8-20.1); Bilirubin, Total 0.3 mg/dL (0.2-1.2); Calc. Creatinine Clearance 26 mL/min (70-130); Calcium 8.2 mg/dL (7.8-10.44); Carbon Dioxide 20 mmol/L (22-29); Chloride 109 mmol/L (98-107); Glucose 144 mg/dL (70-105); Protein, Total 6.4 g/dL (6.0-8.3); Sodium 136 mmol/L (136-145)
[2021-01-17] MEDS: DOBUTamine 500 mg/250 ml 500 MG in Premix Bag 1 BAG IVPB SCH (14:38)
[2021-01-17] MEDS: Milrinone Lactate/D5W 20 MG in Premix Bag 1 BAG IV SCH (14:39)
[2021-01-17 15:40] LABS: Bilirubin Negative (Negative); Blood, Urine Negative (Negative); Clarity Turbid (Clear); Glucose, Urine (Dipstick) Normal (Negative); Ketone, Urine Negative (Negative); Leukocyte Negative Leu/uL (Negative); Nitrite Negative (Negative); Protein, Urine (Dipstick) 300 mg/dL (Neg-Trace); Specific Gravity, Urine 1.011 (1.002-1.036); Urobilinogen Normal mg/dL (Less than 2)
[2021-01-17] MEDS: Rosuvastatin 20 MG TAB PO SCH (21:37)
[2021-01-18 05:07] LABS: Anion Gap 10 mmol/L (10-20); BUN (Urea Nitrogen) 41 mg/dL (9.8-20.1); Calc. Creatinine Clearance 24 mL/min (70-130); Calcium 8.1 mg/dL (7.8-10.44); Carbon Dioxide 23 mmol/L (22-29); Chloride 111 mmol/L (98-107); Glucose 115 mg/dL (70-105); Magnesium 2.4 mg/dL (1.6-2.6); Potassium 4.9 mmol/L (3.5-5.1); Sodium 139 mmol/L (136-145)
[2021-01-18] MEDS: hydrALAZINE 25 MG TAB PO SCH ×3 (05:57→21:51)
[2021-01-18] MEDS: Amiodarone 200 MG TAB PO SCH ×3 (05:57→21:50)
[2021-01-18] MEDS: Isosorbide Dinitrate 20 MG TAB PO SCH ×3 (05:57→21:51)
[2021-01-18] MEDS ORDERED: Sodium Chloride 0.9% 500 ML IVPB SCH (09:15)
[2021-01-18] MEDS: Ferrous Sulfate 325 MG TAB PO SCH (09:34)
[2021-01-18] MEDS: Aspirin 81 mg Enteric Coated Tablet PO SCH (09:34)
[2021-01-18] MEDS: Carvedilol 6.25 MG TAB PO SCH ×2 (09:34→21:49)
[2021-01-18] MEDS: Cyanocobalamin (Vitamin B-12) 1,000 MCG TAB PO SCH (09:34)
[2021-01-18] MEDS: PARoxetine 20 MG TAB PO SCH (09:35)
[2021-01-18] MEDS: Apixaban 2.5 MG TAB PO SCH ×2 (09:35→21:52)
[2021-01-18] MEDS: Milrinone Lactate/D5W 20 MG in Premix Bag 1 BAG IV SCH (11:13)
[2021-01-18] MEDS: DOBUTamine 500 mg/250 ml 500 MG in Premix Bag 1 BAG IVPB SCH (14:18)
[2021-01-18] MEDS: Labetalol HCl 100 MG/20 ML VIAL SLOW IVP PRN (16:30)
[2021-01-18] MEDS: HumaLOG 300 UNITS/3 ML VIAL SC PRN (17:03)
[2021-01-18 21:11] LABS: #Basophils 0.1 thou/uL (0.0-0.2); #Eosinphils 0.7 thou/uL (0.0-0.7); #Lymphocytes 0.9 thou/uL (1.20-3.40); #Monocytes 0.5 thou/uL (0.11-0.59); #Neutrophils 5.9 thou/uL (1.40-6.50); %Basophils 1.1 % (0.0-1.0); %Eosinophils 8.5 % (0.0-10.0); %Lymphocytes 11.5 % (21.0-51.0); %Neutrophils 72.9 % (42.0-75.0); Hemoglobin 9.2 g/dL (12.0-16.0); Mean Corpuscular HGB CONC 33.6 g/dL (32.0-36.0); Mean Corpuscular Hemoglobin 30.1 pg (27.0-31.0); Mean Corpuscular Volume 89.5 fL (78.0-98.0); Mean Platelet Volume 7.3 fL (7.4-10.4); Platelet Count 197 thou/uL (130-400); RBC Distribution Width 13.3 % (11.5-14.5); Red Blood Cell (RBC) Count 3.04 mill/uL (4.20-5.40)
[2021-01-18 21:33] LABS: Anion Gap 13 mmol/L (10-20); Carbon Dioxide 19 mmol/L (22-29); Chloride 111 mmol/L (98-107); Magnesium 2.3 mg/dL (1.6-2.6); Phosphorus 4.6 mg/dL (2.3-4.7); Sodium 138 mmol/L (136-145)
[2021-01-18] MEDS: Rosuvastatin 20 MG TAB PO SCH (21:49)
[2021-01-18] MEDS ORDERED: Melatonin 3 MG TAB PO PRN (22:29)
[2021-01-19] MEDS: Milrinone Lactate/D5W 20 MG in Premix Bag 1 BAG IV SCH (04:45)
[2021-01-19 05:00] LABS: Anion Gap 11 mmol/L (10-20); BUN (Urea Nitrogen) 43 mg/dL (9.8-20.1); Calc. Creatinine Clearance 27 mL/min (70-130); Calcium 7.9 mg/dL (7.8-10.44); Carbon Dioxide 20 mmol/L (22-29); Chloride 110 mmol/L (98-107); Glucose 85 mg/dL (70-105); Magnesium 2.4 mg/dL (1.6-2.6); Potassium 4.9 mmol/L (3.5-5.1); Sodium 136 mmol/L (136-145)
[2021-01-19] MEDS: hydrALAZINE 25 MG TAB PO SCH ×3 (05:17→22:00)
[2021-01-19] MEDS: Isosorbide Dinitrate 20 MG TAB PO SCH ×3 (05:17→22:00)
[2021-01-19] MEDS: Amiodarone 200 MG TAB PO SCH ×3 (05:18→22:00)
[2021-01-19] MEDS: Aspirin 81 mg Enteric Coated Tablet PO SCH (08:13)
[2021-01-19] MEDS: Carvedilol 6.25 MG TAB PO SCH ×2 (08:13→20:07)
[2021-01-19] MEDS: PARoxetine 20 MG TAB PO SCH (08:14)
[2021-01-19] MEDS: Cyanocobalamin (Vitamin B-12) 1,000 MCG TAB PO SCH (08:14)
[2021-01-19] MEDS: Ferrous Sulfate 325 MG TAB PO SCH (08:14)
[2021-01-19] MEDS: Apixaban 2.5 MG TAB PO SCH ×2 (08:14→20:07)
[2021-01-19] MEDS ORDERED: Calcium Gluconate 4.6 MEQ in Sodium Chloride 0.9% 100 ML IVPB SCH (08:45)
[2021-01-19 09:31] LABS: Hemoglobin 9.6 g/dL (12.0-16.0); Platelet Count 187 thou/uL (130-400)
[2021-01-19] MEDS: DOBUTamine 500 mg/250 ml 500 MG in Premix Bag 1 BAG IVPB SCH (10:05)
[2021-01-19] MEDS: HumaLOG 300 UNITS/3 ML VIAL SC PRN (16:35)
[2021-01-19] MEDS: Rosuvastatin 20 MG TAB PO SCH (20:07)
[2021-01-19 20:22] LABS: Troponin I 0.044 ng/mL (< 0.028)
[2021-01-20 00:03] LABS: Troponin I 0.043 ng/mL (< 0.028)
[2021-01-20] MEDS: Milrinone Lactate/D5W 20 MG in Premix Bag 1 BAG IV SCH ×2 (00:29→21:16)
[2021-01-20] MEDS: DOBUTamine 500 mg/250 ml 500 MG in Premix Bag 1 BAG IVPB SCH (03:05)
[2021-01-20 05:22] LABS: Anion Gap 13 mmol/L (10-20); BUN (Urea Nitrogen) 41 mg/dL (9.8-20.1); Calc. Creatinine Clearance 29 mL/min (70-130); Carbon Dioxide 19 mmol/L (22-29); Chloride 111 mmol/L (98-107); Glucose 93 mg/dL (70-105); Magnesium 2.2 mg/dL (1.6-2.6); Potassium 4.7 mmol/L (3.5-5.1); Sodium 138 mmol/L (136-145)
[2021-01-20] MEDS: hydrALAZINE 25 MG TAB PO SCH ×3 (05:32→21:09)
[2021-01-20] MEDS: Amiodarone 200 MG TAB PO SCH ×3 (05:33→21:10)
[2021-01-20] MEDS: Isosorbide Dinitrate 20 MG TAB PO SCH ×3 (05:34→21:11)
[2021-01-20] MEDS: Ferrous Sulfate 325 MG TAB PO SCH (08:40)
[2021-01-20] MEDS: Carvedilol 6.25 MG TAB PO SCH ×2 (08:40→21:12)
[2021-01-20] MEDS: Aspirin 81 mg Enteric Coated Tablet PO SCH (08:40)
[2021-01-20] MEDS: PARoxetine 20 MG TAB PO SCH (08:40)
[2021-01-20] MEDS: Apixaban 2.5 MG TAB PO SCH ×2 (08:40→21:12)
[2021-01-20] MEDS: Cyanocobalamin (Vitamin B-12) 1,000 MCG TAB PO SCH (08:40)
[2021-01-20] MEDS: Rosuvastatin 20 MG TAB PO SCH (21:09)
[2021-01-20] MEDS: Sodium Bicarbonate Tab 325 MG TAB PO SCH (21:12)
[2021-01-21] MEDS: DOBUTamine 500 mg/250 ml 500 MG in Premix Bag 1 BAG IVPB SCH ×2 (01:06→22:44)
[2021-01-21 05:13] LABS: Anion Gap 13 mmol/L (10-20); BUN (Urea Nitrogen) 37 mg/dL (9.8-20.1); Calc. Creatinine Clearance 29 mL/min (70-130); Calcium 8.3 mg/dL (7.8-10.44); Carbon Dioxide 20 mmol/L (22-29); Chloride 109 mmol/L (98-107); Glucose 90 mg/dL (70-105); Magnesium 2.2 mg/dL (1.6-2.6); Sodium 137 mmol/L (136-145)
[2021-01-21] MEDS: Isosorbide Dinitrate 20 MG TAB PO SCH ×3 (05:37→21:51)
[2021-01-21] MEDS: hydrALAZINE 25 MG TAB PO SCH ×3 (05:38→21:50)
[2021-01-21] MEDS: Amiodarone 200 MG TAB PO SCH ×3 (05:39→21:52)
[2021-01-21] MEDS: Sodium Bicarbonate Tab 325 MG TAB PO SCH ×2 (09:41→21:50)
[2021-01-21] MEDS: Aspirin 81 mg Enteric Coated Tablet PO SCH (09:41)
[2021-01-21] MEDS: Ferrous Sulfate 325 MG TAB PO SCH (09:41)
[2021-01-21] MEDS: Apixaban 2.5 MG TAB PO SCH ×2 (09:41→21:52)
[2021-01-21] MEDS: Carvedilol 6.25 MG TAB PO SCH ×2 (09:42→21:52)
[2021-01-21] MEDS: PARoxetine 20 MG TAB PO SCH (09:42)
[2021-01-21] MEDS: Cyanocobalamin (Vitamin B-12) 1,000 MCG TAB PO SCH (09:42)
[2021-01-21 12:18] VITALS: BMI 29.2
[2021-01-21] MEDS: Milrinone Lactate/D5W 20 MG in Premix Bag 1 BAG IV SCH (15:31)
[2021-01-21] MEDS: Rosuvastatin 10 MG TAB PO SCH (21:52)
[2021-01-22 05:15] LABS: Anion Gap 12 mmol/L (10-20); BUN (Urea Nitrogen) 36 mg/dL (9.8-20.1); Calc. Creatinine Clearance 26 mL/min (70-130); Calcium 7.9 mg/dL (7.8-10.44); Carbon Dioxide 20 mmol/L (22-29); Chloride 108 mmol/L (98-107); Glucose 87 mg/dL (70-105); Magnesium 2.2 mg/dL (1.6-2.6); Potassium 5.1 mmol/L (3.5-5.1); Sodium 135 mmol/L (136-145)
[2021-01-22] MEDS: hydrALAZINE 25 MG TAB PO SCH ×3 (05:56→21:10)
[2021-01-22] MEDS: Isosorbide Dinitrate 20 MG TAB PO SCH ×3 (05:56→21:10)
[2021-01-22] MEDS: Amiodarone 200 MG TAB PO SCH ×3 (05:57→21:11)
[2021-01-22] MEDS: Sodium Bicarbonate Tab 325 MG TAB PO SCH ×2 (08:19→21:10)
[2021-01-22] MEDS: Carvedilol 6.25 MG TAB PO SCH ×2 (08:19→21:11)
[2021-01-22] MEDS: Cyanocobalamin (Vitamin B-12) 1,000 MCG TAB PO SCH (08:19)
[2021-01-22] MEDS: Aspirin 81 mg Enteric Coated Tablet PO SCH (08:19)
[2021-01-22] MEDS: PARoxetine 20 MG TAB PO SCH (08:20)
[2021-01-22] MEDS: Ferrous Sulfate 325 MG TAB PO SCH (08:20)
[2021-01-22] MEDS: Apixaban 2.5 MG TAB PO SCH ×2 (08:20→21:10)
[2021-01-22 08:42] LABS: Hemoglobin 8.7 g/dL (12.0-16.0); Platelet Count 179 thou/uL (130-400)
[2021-01-22] MEDS: Sodium Bicarbonate 150 MEQ in Dextrose 5% in Water 250 ML IV SCH ×2 (10:57→11:55)
[2021-01-22] MEDS: HumaLOG 300 UNITS/3 ML VIAL SC PRN (12:04)
[2021-01-22] MEDS: Milrinone Lactate/D5W 20 MG in Premix Bag 1 BAG IV SCH (12:39)
[2021-01-22] MEDS: DOBUTamine 500 mg/250 ml 500 MG in Premix Bag 1 BAG IVPB SCH (19:19)
[2021-01-22] MEDS: Rosuvastatin 10 MG TAB PO SCH (21:10)
[2021-01-23 05:16] LABS: Anion Gap 15 mmol/L (10-20); BUN (Urea Nitrogen) 41 mg/dL (9.8-20.1); Calc. Creatinine Clearance 25 mL/min (70-130); Calcium 7.9 mg/dL (7.8-10.44); Carbon Dioxide 23 mmol/L (22-29); Chloride 106 mmol/L (98-107); Glucose 93 mg/dL (70-105); Magnesium 2.2 mg/dL (1.6-2.6); Potassium 4.8 mmol/L (3.5-5.1); Sodium 139 mmol/L (136-145)
[2021-01-23] MEDS: Amiodarone 200 MG TAB PO SCH ×2 (05:54→13:58)
[2021-01-23] MEDS: hydrALAZINE 25 MG TAB PO SCH ×2 (05:54→13:57)
[2021-01-23] MEDS: Isosorbide Dinitrate 20 MG TAB PO SCH ×2 (05:54→13:58)
[2021-01-23] MEDS: Milrinone Lactate/D5W 20 MG in Premix Bag 1 BAG IV SCH (05:58)
[2021-01-23] MEDS: Carvedilol 6.25 MG TAB PO SCH (08:05)
[2021-01-23] MEDS: Ferrous Sulfate 325 MG TAB PO SCH (08:06)
[2021-01-23] MEDS: PARoxetine 20 MG TAB PO SCH (08:06)
[2021-01-23] MEDS: Cyanocobalamin (Vitamin B-12) 1,000 MCG TAB PO SCH (08:06)
[2021-01-23] MEDS: Aspirin 81 mg Enteric Coated Tablet PO SCH (08:06)
[2021-01-23] MEDS: Apixaban 2.5 MG TAB PO SCH (08:06)
[2021-01-23] MEDS: Sodium Bicarbonate Tab 325 MG TAB PO SCH (08:06)
[2021-01-23] MEDS: DOBUTamine 500 mg/250 ml 500 MG in Premix Bag 1 BAG IVPB SCH (16:10)
[2021-01-23 18:41] VITALS: BP 155/77; TEMP 98.3
[2021-01-23] MEDS ORDERED: Sodium Bicarbonate Tab 325 MG TAB PO SCH (21:00)
[2021-01-24] MEDS ORDERED: Sodium Bicarbonate Tab 325 MG TAB PO SCH (09:00)
== END 2021-01-23 18:43 | disposition short-term general hospital (02) | DRG 291 ==
LOC: ERS 17:40 → 2NO 21:31
PROVIDERS: ADMIT Student in an Organized Health Care Education/Training Program; ATTEND Internal Medicine
PROC: 30233N1 Transfusion of Nonautologous Red Blood Cells into Peripheral Vein, Percutaneous Approach (ICD-10-PCS; 2021-01-01)
PROC: 3E033XZ Introduction of Vasopressor into Peripheral Vein, Percutaneous Approach (ICD-10-PCS; principal; 2021-01-08)
PROC: 02H633Z Insertion of Infusion Device into Right Atrium, Percutaneous Approach (ICD-10-PCS; 2021-01-18)
PROC: B518ZZA Fluoroscopy of Superior Vena Cava, Guidance (ICD-10-PCS; 2021-01-18)
PROC: B548ZZA Ultrasonography of Superior Vena Cava, Guidance (ICD-10-PCS; 2021-01-18)
DX: I13.0 Hypertensive heart and chronic kidney disease with heart failure and stage 1 through stage 4 chronic kidney disease, or unspecified chronic kidney disease (principal); I50.43 Acute on chronic combined systolic (congestive) and diastolic (congestive) heart failure; I82.220 Acute embolism and thrombosis of inferior vena cava; J96.01 Acute respiratory failure with hypoxia; N17.0 Acute kidney failure with tubular necrosis; B17.9 Acute viral hepatitis, unspecified; N18.4 Chronic kidney disease, stage 4 (severe); E87.2 Acidosis; E87.1 Hypo-osmolality and hyponatremia; I47.2 Ventricular tachycardia; Z20.822 Contact with and (suspected) exposure to COVID-19; R94.5 Abnormal results of liver function studies; I34.0 Nonrheumatic mitral (valve) insufficiency; E11.22 Type 2 diabetes mellitus with diabetic chronic kidney disease; E78.5 Hyperlipidemia, unspecified; F32.9 Major depressive disorder, single episode, unspecified; I42.8 Other cardiomyopathies; D51.9 Vitamin B12 deficiency anemia, unspecified; D63.1 Anemia in chronic kidney disease; D50.9 Iron deficiency anemia, unspecified; R77.8 Other specified abnormalities of plasma proteins; I48.0 Paroxysmal atrial fibrillation; E87.5 Hyperkalemia; R33.9 Retention of urine, unspecified; I49.1 Atrial premature depolarization; I49.3 Ventricular premature depolarization; Z79.899 Other long term (current) drug therapy; Z79.84 Long term (current) use of oral hypoglycemic drugs
CPT/HCPCS: 0240U; 36415; 36416; 36430; 36569; 71045; 71046; 71275; 76770; 80048; 80053; 80061; 80074; 81003; 82274; 82553; 82607; 82728; 82746; 82947; 83036; 83540; 83550; 83615; 83735; 83880; 84100; 84443; 84484; 85014; 85018; 85025; 85046; 85049; 85379; 85610; 85730; 86850; 86900; 86901; 87324; 87449; 87635; 93005; 93010; 93306; 93798; 93970; 93975; 96374; C1751; J1250; J1644; J1650; J1815; J1940; J2001; J2260; J2916; J3490; J7070; P9016; P9047; Q9967; U0003; U0005

== ENCOUNTER 2021-02-08 19:47 | Emergency (ER) | payer BC ==
[2021-02-08 22:05] LABS: #Basophils 0.1 thou/uL (0.0-0.2); #Eosinphils 0.8 thou/uL (0.0-0.7); #Lymphocytes 1.4 thou/uL (1.20-3.40); #Monocytes 0.5 thou/uL (0.11-0.59); #Neutrophils 3.8 thou/uL (1.40-6.50); %Basophils 0.8 % (0.0-1.0); %Eosinophils 12.1 % (0.0-10.0); %Lymphocytes 21.2 % (21.0-51.0); %Monocytes 7.2 % (0.0-10.0); %Neutrophils 58.6 % (42.0-75.0); Mean Corpuscular Hemoglobin 29.3 pg (27.0-31.0); Mean Corpuscular Volume 91.3 fL (78.0-98.0); Mean Platelet Volume 7.6 fL (7.4-10.4); Platelet Count 209 thou/uL (130-400); RBC Distribution Width 13.7 % (11.5-14.5); Red Blood Cell (RBC) Count 3.06 mill/uL (4.20-5.40); White Blood Cell (WBC) Count 6.5 thou/uL (4.8-10.8)
[2021-02-08 22:25] LABS: ALT (SGPT) 49 U/L (8-55); AST (SGOT) 57 U/L (5-34); Albumin 3.4 g/dL (3.5-5.0); Alkaline Phosphatase 118 U/L (40-110); Anion Gap 14 mmol/L (10-20); BUN (Urea Nitrogen) 44 mg/dL (9.8-20.1); Bilirubin, Total 0.2 mg/dL (0.2-1.2); Calc. Creatinine Clearance 0 mL/min (70-130); Calcium 8.2 mg/dL (7.8-10.44); Carbon Dioxide 23 mmol/L (22-29); Chloride 106 mmol/L (98-107); Globulin 3.3 g/dL (2.4-3.5); Glucose 134 mg/dL (70-105); Protein, Total 6.7 g/dL (6.0-8.3); Sodium 136 mmol/L (136-145)
[2021-02-08 22:27] LABS: Potassium 6.9 mmol/L (3.5-5.1)
[2021-02-08 23:02] LABS: CK (CPK) 85 U/L (29-168); Lipase 123 U/L (8-78)
[2021-02-08] MEDS ORDERED: Insulin Regular 300 UNITS/3 ML VIAL ONE (23:08)
[2021-02-08] MEDS ORDERED: Sodium Bicarbonate 2.5 MEQ/5 ML VIAL ONE (23:08)
[2021-02-08] MEDS ORDERED: Dextrose 50% Abboject 50 ML SYRINGE ONE ×2 (23:08→23:11)
[2021-02-08] MEDS ORDERED: Calcium Chloride 1 GM/10 ML Abboject SYRINGE ONE ×2 (23:08→23:13)
[2021-02-08] MEDS ORDERED: Sodium Bicarb 50 MEQ/50 ML Abboject 8.4% SYRINGE ONE (23:39)
[2021-02-09] MEDS ORDERED: Calcium Chloride 1 GM/10 ML Abboject SYRINGE ONE (01:03)
== END 2021-02-09 01:55 | disposition short-term general hospital (02) ==
LOC: ERS 19:47
DX: E87.5 Hyperkalemia (principal); E11.22 Type 2 diabetes mellitus with diabetic chronic kidney disease; I13.0 Hypertensive heart and chronic kidney disease with heart failure and stage 1 through stage 4 chronic kidney disease, or unspecified chronic kidney disease; N18.9 Chronic kidney disease, unspecified; I50.9 Heart failure, unspecified; Z79.82 Long term (current) use of aspirin; Z79.899 Other long term (current) drug therapy; Z79.84 Long term (current) use of oral hypoglycemic drugs
CPT/HCPCS: 36415; 71045; 80053; 82550; 83690; 83880; 84484; 85025; 93005; 96374; 96375; 96376; J1815

== ENCOUNTER 2021-03-05 14:07 | Inpatient (IN) | payer BC ==
[2021-03-05 14:41] LABS: #Basophils 0.1 thou/uL (0.0-0.2); #Eosinphils 1.1 thou/uL (0.0-0.7); #Lymphocytes 1.5 thou/uL (1.20-3.40); #Monocytes 0.5 thou/uL (0.11-0.59); #Neutrophils 4.4 thou/uL (1.40-6.50); %Eosinophils 14.7 % (0.0-10.0); %Lymphocytes 19.6 % (21.0-51.0); %Monocytes 6.2 % (0.0-10.0); %Neutrophils 58.5 % (42.0-75.0); Hemoglobin 9.5 g/dL (12.0-16.0); Mean Corpuscular Hemoglobin 29.4 pg (27.0-31.0); Mean Corpuscular Volume 91.9 fL (78.0-98.0); Mean Platelet Volume 7.4 fL (7.4-10.4); Platelet Count 237 thou/uL (130-400); RBC Distribution Width 14.6 % (11.5-14.5); Red Blood Cell (RBC) Count 3.23 mill/uL (4.20-5.40); White Blood Cell (WBC) Count 7.5 thou/uL (4.8-10.8)
[2021-03-05 15:03] LABS: ALT (SGPT) 56 U/L (8-55); AST (SGOT) 50 U/L (5-34); Albumin 3.7 g/dL (3.5-5.0); Alkaline Phosphatase 212 U/L (40-110); Anion Gap 13 mmol/L (10-20); BUN (Urea Nitrogen) 59 mg/dL (9.8-20.1); Bilirubin, Total 0.3 mg/dL (0.2-1.2); Calc. Creatinine Clearance 0 mL/min (70-130); Calcium 8.7 mg/dL (7.8-10.44); Carbon Dioxide 23 mmol/L (22-29); Chloride 106 mmol/L (98-107); Globulin 3.4 g/dL (2.4-3.5); Glucose 121 mg/dL (70-105); Potassium 6.1 mmol/L (3.5-5.1); Protein, Total 7.1 g/dL (6.0-8.3); Sodium 136 mmol/L (136-145)
[2021-03-05] MEDS ORDERED: Sodium Bicarb 50 MEQ/50 ML Abboject 8.4% SYRINGE ONE (15:15)
[2021-03-05] MEDS ORDERED: Insulin Regular 300 UNITS/3 ML VIAL ONE (15:15)
[2021-03-05] MEDS ORDERED: Calcium Chloride 1 GM/10 ML Abboject SYRINGE ONE ×2 (15:15→15:17)
[2021-03-05] MEDS ORDERED: Dextrose 50% Abboject 50 ML SYRINGE ONE (15:15)
[2021-03-05] MEDS ORDERED: Senokot S 8.6-50 MG TAB PO PRN (18:03)
[2021-03-05] MEDS ORDERED: Ondansetron PF 4 MG/2 ML Vial IVP PRN (18:03)
[2021-03-05] MEDS ORDERED: Acetaminophen 325 MG TAB PO PRN (18:03)
[2021-03-05] MEDS ORDERED: ALPRAZolam 0.25 MG TAB PO PRN (18:07)
[2021-03-05] MEDS ORDERED: Dextrose 50% Abboject 50 ML SYRINGE SLOW IVP PRN (18:09)
[2021-03-05] MEDS ORDERED: Dextrose 5% in Water 1,000 ML IV PRN (18:09)
[2021-03-05] MEDS ORDERED: HumaLOG 300 UNITS/3 ML VIAL SC PRN (18:09)
[2021-03-05] MEDS ORDERED: Sodium Chloride 0.9% 1,000 ML IV SCH (18:15)
[2021-03-05 18:50] VITALS: BMI 26.2
[2021-03-05 19:53] LABS: Anion Gap 14 mmol/L (10-20); BUN (Urea Nitrogen) 54 mg/dL (9.8-20.1); Calc. Creatinine Clearance 21 mL/min (70-130); Calcium 9.1 mg/dL (7.8-10.44); Carbon Dioxide 22 mmol/L (22-29); Chloride 110 mmol/L (98-107); Glucose 107 mg/dL (70-105); Potassium 5.2 mmol/L (3.5-5.1); Sodium 141 mmol/L (136-145)
[2021-03-05] MEDS: hydrALAZINE 25 MG TAB PO SCH (20:51)
[2021-03-05] MEDS: Apixaban 5 MG TAB PO SCH (20:51)
[2021-03-05] MEDS: Isosorbide Dinitrate 20 MG TAB PO SCH (20:52)
[2021-03-05] MEDS: Rosuvastatin 20 MG TAB PO SCH (20:52)
[2021-03-05] MEDS ORDERED: EPOETIN ALFA-EPBX (ESRD) 4,000 UNIT/ML VIAL SC SCH (21:00)
[2021-03-06 01:28] LABS: SARS-CoV-2 PCR by NAA Not Detected (NotDetected)
[2021-03-06 04:33] LABS: #Basophils 0.1 thou/uL (0.0-0.2); #Lymphocytes 1.5 thou/uL (1.20-3.40); #Monocytes 0.4 thou/uL (0.11-0.59); %Basophils 1.2 % (0.0-1.0); %Eosinophils 16.9 % (0.0-10.0); %Monocytes 6.3 % (0.0-10.0); %Neutrophils 50.5 % (42.0-75.0); Hemoglobin 8.4 g/dL (12.0-16.0); Mean Corpuscular HGB CONC 32.7 g/dL (32.0-36.0); Mean Corpuscular Volume 91.8 fL (78.0-98.0); Mean Platelet Volume 7.3 fL (7.4-10.4); Platelet Count 183 thou/uL (130-400); RBC Distribution Width 14.4 % (11.5-14.5); White Blood Cell (WBC) Count 5.9 thou/uL (4.8-10.8)
[2021-03-06 04:49] LABS: Phosphorus 6.3 mg/dL (2.3-4.7)
[2021-03-06 04:52] LABS: ALT (SGPT) 69 U/L (8-55); AST (SGOT) 76 U/L (5-34); Alkaline Phosphatase 219 U/L (40-110); Anion Gap 14 mmol/L (10-20); BUN (Urea Nitrogen) 49 mg/dL (9.8-20.1); Bilirubin, Total 0.3 mg/dL (0.2-1.2); Calc. Creatinine Clearance 22 mL/min (70-130); Calcium 8.5 mg/dL (7.8-10.44); Carbon Dioxide 22 mmol/L (22-29); Chloride 108 mmol/L (98-107); Globulin 2.9 g/dL (2.4-3.5); Glucose 69 mg/dL (70-105); Potassium 4.5 mmol/L (3.5-5.1); Protein, Total 5.9 g/dL (6.0-8.3); Sodium 139 mmol/L (136-145)
[2021-03-06] MEDS: Apixaban 5 MG TAB PO SCH ×2 (08:57→20:46)
[2021-03-06] MEDS: PARoxetine 20 MG TAB PO SCH (08:57)
[2021-03-06] MEDS: hydrALAZINE 25 MG TAB PO SCH ×3 (08:57→20:46)
[2021-03-06] MEDS: Sevelamer Carbonate 800 MG TAB PO SCH ×3 (08:57→17:14)
[2021-03-06] MEDS: Isosorbide Dinitrate 20 MG TAB PO SCH ×3 (08:58→20:45)
[2021-03-06] MEDS: Aspirin Chewable 81 MG TAB PO SCH (08:58)
[2021-03-06] MEDS: Ferrous Sulfate 325 MG TAB PO SCH (08:58)
[2021-03-06] MEDS: Carvedilol 6.25 MG TAB PO SCH ×2 (08:58→17:14)
[2021-03-06] MEDS: LOKELMA 10 GM PACKET PO SCH (08:59)
[2021-03-06] MEDS: Calcitriol 0.25 MCG CAP PO SCH (09:38)
[2021-03-06 10:45] LABS: Body Surface Area 1.73
[2021-03-06] MEDS: Rosuvastatin 20 MG TAB PO SCH (20:45)
[2021-03-07 00:27] LABS: 24 Hr Creatinine 796.08 mg/24 hr (710-1650); Creatinine, Urine 66.34 mg/dL (47-110)
[2021-03-07 00:44] LABS: Creatinine, Urine 66.34 mg/dL (47-110)
[2021-03-07 05:08] LABS: #Basophils 0.1 thou/uL (0.0-0.2); #Eosinphils 0.8 thou/uL (0.0-0.7); #Lymphocytes 1.5 thou/uL (1.20-3.40); #Monocytes 0.4 thou/uL (0.11-0.59); #Neutrophils 2.6 thou/uL (1.40-6.50); %Basophils 1.4 % (0.0-1.0); %Lymphocytes 27.5 % (21.0-51.0); Hemoglobin 8.4 g/dL (12.0-16.0); Mean Corpuscular HGB CONC 32.3 g/dL (32.0-36.0); Mean Corpuscular Hemoglobin 29.6 pg (27.0-31.0); Mean Corpuscular Volume 91.7 fL (78.0-98.0); Mean Platelet Volume 7.5 fL (7.4-10.4); Platelet Count 172 thou/uL (130-400); RBC Distribution Width 14.2 % (11.5-14.5); Red Blood Cell (RBC) Count 2.82 mill/uL (4.20-5.40); White Blood Cell (WBC) Count 5.5 thou/uL (4.8-10.8)
[2021-03-07 05:30] LABS: ALT (SGPT) 57 U/L (8-55); AST (SGOT) 50 U/L (5-34); Albumin 3.1 g/dL (3.5-5.0); Alkaline Phosphatase 191 U/L (40-110); Anion Gap 11 mmol/L (10-20); BUN (Urea Nitrogen) 45 mg/dL (9.8-20.1); Bilirubin, Total 0.2 mg/dL (0.2-1.2); Calc. Creatinine Clearance 24 mL/min (70-130); Calcium 8.2 mg/dL (7.8-10.44); Carbon Dioxide 24 mmol/L (22-29); Chloride 105 mmol/L (98-107); Globulin 2.8 g/dL (2.4-3.5); Glucose 112 mg/dL (70-105); Magnesium 2.8 mg/dL (1.6-2.6); Phosphorus 5.6 mg/dL (2.3-4.7); Potassium 4.3 mmol/L (3.5-5.1); Protein, Total 5.9 g/dL (6.0-8.3); Sodium 136 mmol/L (136-145)
[2021-03-07] MEDS: Isosorbide Dinitrate 20 MG TAB PO SCH ×2 (09:16→15:18)
[2021-03-07] MEDS: Calcitriol 0.25 MCG CAP PO SCH (09:16)
[2021-03-07] MEDS: Carvedilol 6.25 MG TAB PO SCH ×2 (09:16→17:39)
[2021-03-07] MEDS: Sevelamer Carbonate 800 MG TAB PO SCH ×3 (09:16→17:40)
[2021-03-07] MEDS: Apixaban 5 MG TAB PO SCH (09:17)
[2021-03-07] MEDS: hydrALAZINE 25 MG TAB PO SCH ×2 (09:17→15:17)
[2021-03-07] MEDS: PARoxetine 20 MG TAB PO SCH (09:17)
[2021-03-07] MEDS: Ferrous Sulfate 325 MG TAB PO SCH (09:17)
[2021-03-07] MEDS: Aspirin Chewable 81 MG TAB PO SCH (09:17)
[2021-03-07] MEDS: LOKELMA 10 GM PACKET PO SCH (14:47)
[2021-03-07 15:51] VITALS: BP 161/72; TEMP 98.4
== END 2021-03-07 18:00 | disposition home or self-care (01) | DRG 641 ==
LOC: ERS 14:07 → 2NO 16:17
PROVIDERS: ADMIT Internal Medicine; ATTEND Internal Medicine
DX: E87.5 Hyperkalemia (principal); I13.0 Hypertensive heart and chronic kidney disease with heart failure and stage 1 through stage 4 chronic kidney disease, or unspecified chronic kidney disease; I50.22 Chronic systolic (congestive) heart failure; I47.1 Supraventricular tachycardia; N25.81 Secondary hyperparathyroidism of renal origin; E11.22 Type 2 diabetes mellitus with diabetic chronic kidney disease; E78.5 Hyperlipidemia, unspecified; E88.09 Other disorders of plasma-protein metabolism, not elsewhere classified; E83.39 Other disorders of phosphorus metabolism; N18.30 Chronic kidney disease, stage 3 unspecified; Z79.82 Long term (current) use of aspirin; Z79.01 Long term (current) use of anticoagulants; Z79.84 Long term (current) use of oral hypoglycemic drugs; Z20.822 Contact with and (suspected) exposure to COVID-19
CPT/HCPCS: 36415; 36416; 80053; 80069; 82570; 82575; 83735; 83970; 84100; 84156; 84484; 85025; 87635; 93005; 94760; 96374; 96375; J1815; Q5105; U0003; U0005

== ENCOUNTER 2021-07-26 15:06 | Emergency (ER) | payer BC ==
[2021-07-26 16:56] LABS: #Lymphocytes 0.7 thou/uL (1.20-3.40); #Monocytes 0.4 thou/uL (0.11-0.59); %Eosinophils 0.4 % (0.0-10.0); %Lymphocytes 17.1 % (21.0-51.0); %Monocytes 9.3 % (0.0-10.0); %Neutrophils 73.2 % (42.0-75.0); Hemoglobin 8.3 g/dL (12.0-16.0); Mean Corpuscular HGB CONC 34.7 g/dL (32.0-36.0); Mean Corpuscular Hemoglobin 32.4 pg (27.0-31.0); Mean Corpuscular Volume 93.5 fL (78.0-98.0); Mean Platelet Volume 7.4 fL (7.4-10.4); Platelet Count 108 thou/uL (130-400); RBC Distribution Width 12.1 % (11.5-14.5); Red Blood Cell (RBC) Count 2.56 mill/uL (4.20-5.40); White Blood Cell (WBC) Count 4.1 thou/uL (4.8-10.8)
[2021-07-26 17:02] LABS: ALT (SGPT) 21 U/L (8-55); AST (SGOT) 32 U/L (5-34); Albumin 2.9 g/dL (3.5-5.0); Alkaline Phosphatase 73 U/L (40-110); Anion Gap 12 mmol/L (10-20); BUN (Urea Nitrogen) 35 mg/dL (9.8-20.1); Bilirubin, Total 0.2 mg/dL (0.2-1.2); Calc. Creatinine Clearance 0 mL/min (70-130); Calcium 7.5 mg/dL (7.8-10.44); Carbon Dioxide 21 mmol/L (22-29); Chloride 107 mmol/L (98-107); Globulin 2.8 g/dL (2.4-3.5); Magnesium 2.3 mg/dL (1.6-2.6); Potassium 4.7 mmol/L (3.5-5.1); Protein, Total 5.7 g/dL (6.0-8.3); Sodium 135 mmol/L (136-145)
[2021-07-26 17:09] LABS: Glucose 56 mg/dL (70-105)
[2021-07-26 17:11] LABS: MDiff Complete? YES; Platelet Morphology Comment Appears Decreased; Polychromasia SLIGHT = 2-3 cells (100X) (0-2/hpf)
== END 2021-07-26 22:53 | disposition home or self-care (01) ==
LOC: ERS 15:06
DX: E11.649 Type 2 diabetes mellitus with hypoglycemia without coma (principal); R55 Syncope and collapse; D61.818 Other pancytopenia; I11.0 Hypertensive heart disease with heart failure; I50.9 Heart failure, unspecified; E78.5 Hyperlipidemia, unspecified; Z79.82 Long term (current) use of aspirin; Z79.84 Long term (current) use of oral hypoglycemic drugs; Z79.899 Other long term (current) drug therapy
CPT/HCPCS: 36415; 36416; 71045; 80053; 83735; 84443; 84484; 85025; 93005